=== PATIENT | female | born 1945 | race Caucasian/White ===

== ENCOUNTER → 2025-04-19 | Outpatient (CLI) | payer MEDICARE, BC, SELFPAY ==
--- OUTSIDE RECORDS SUMMARY | 2025-02-22 14:13 | XMS RPT_ITS ---
Author Name Auto Generated Organization OHIP Support Name Relationship Address Phone RETIRED Next of Kin Unknown Unavailable RITIKA JESUS Next of Kin Unknown [phone] RETIRED Next of Kin Unknown Unavailable RITIKA JESUS Next of Kin Unknown [phone] RETIRED Next of Kin Unknown Unavailable RITIKA JESUS Next of Kin Unknown [phone] RETIRED Next of Kin Unknown Unavailable ANN MARIE, RITIKA Next of Kin Unknown [phone] RETIRED Next of Kin Unknown Unavailable RITIKA JESUS Next of Kin Unknown [phone] RETIRED Next of Kin Unknown Unavailable ANN MARIE, RITIKA Next of Kin Unknown [phone] RETIRED Next of Kin Unknown Unavailable RITIKA JESUS Next of Kin Unknown [phone] THIEME, ORTEGA Next of Kin [address] [place] [address] + THIEME, ORTEGA Next of Kin [address] [place] [address] + THIEME, ORTEGA Next of Kin [address] [place] [address] + RETIRED Next of Kin Unknown Unavailable RITIKA JESUS Next of Kin Unknown [phone] THIEME, ORTEGA Next of Kin [address] [place] [address] + THIEME, ORTEGA Next of Kin [address] [place] [address] + THIEME, ORTEGA Next of Kin [address] [place] [address] + THIEME, ORTEGA Next of Kin [address] [place] [address] + THIEME, ORTEGA Next of Kin [address] [place] [address] + THINELSON, ORTEGA Next of Kin [address] [place] [address] + RETIRED Next of Kin Unknown Unavailable RITIKA JESUS Next of Kin Unknown [phone] RETIRED Next of Kin Unknown Unavailable THIRITIKA DAMON Next of Kin Unknown [phone] RETIRED Next of Kin Unknown Unavailable THIRITIKA DAMON Next of Kin Unknown [phone] THINELSON, ORTEGA Next of Kin [address] [place] [address] + RETIRED Next of Kin Unknown Unavailable RITIKA JESUS Next of Kin Unknown [phone] Care Team Providers Care Practical Nursing Instructor Name Role Phone EVELYNE BRYANT S Referring Unavailable STENTZ, AISLINN Primary Care Unavailable MASOODSOEVELYNE S Referring Unavailable STENTZ, AISLINN Primary Care Unavailable MASOODSOEVELYNE S Referring Unavailable STENTZ, AISLINN Primary Care Unavailable MASOODSO EVELYNE S Referring Unavailable STENTZ, AISLINN Primary Care Unavailable GENIE MARTINEZ Attending Unavailable JOSE MARIE Referring Unavailable OBERHAUSERBRONWYN Primary Care Unavailable BORRUSO, EVELYNE S Referring Unavailable STENTZ, AISLINN Primary Care Unavailable MASOODSO, EVELYNE S Referring Unavailable STENTZ, AISLINN Primary Care Unavailable BORRUSO, EVELYNE S Referring Unavailable STENTZ, AISLINN Primary Care Unavailable GARCIA, RANDAL K Admitting Unavailable GARCIA, RANDAL K Attending Unavailable OBERHAUSERBRONWYN Primary Care Unavailab le GARCIA, RANDAL K Attending Unavailable OBERHAUSER, BRONWYN DALAL Primary Care Unavailab le GARCIA, RANDAL K Referring Unavailable STENTZ, AISLINN Primary Care Unavailable GARCIA, RANDAL K Attending Unavailable GARCIA, RANDAL K Referring Unavailable OBERHAUSER, BRONWYN DALAL Primary Care Unavailab le GARCIA, RANDAL K Attending Unavailable GARCIA, RANDAL K Attending Unavailable OBERHAUSER, BRONWYN DALAL Primary Care Unavailab le GARCIA, RANDAL K Referring Unavailable GARCIA, RANDAL K Attending Unavailable OBERHAUSER, BRONWYN DALAL Primary Care Unavailab le GARCIA, RANDAL K Referring Unavailable ARNIE DUGAN Attending Unavailable OBERHAUSER, BRONWYN Primary Care Unavailable OBERHAUSER, BRONWYN Primary Care Unavailable RITCHIE, ARNIE Attending Unavailable RITCHIE, ARNIE Attending Unavailable OBERHAUSER, BRONWYN Primary Care Unavailable OBERHAUSER, BRONWYN Primary Care Unavailable RAMIREZREBECCA MAX Attending Unavailable OBERHAUSER, BRONWYN Primary Care Unavailable RAMIREZREBECCA Attending Unavailable OBERHAUSER, BRONWYN Primary Care Unavailable RITCHIE, ARNIE Attending Unavailable OBERHAUSER, BRONWYN Primary Care Unavailable RITCHIE, ARNIE Attending Unavailable OBERHAUSER, BRONWYN Primary Care Unavailable RITCHIE, ARNIE Attending Unavailable RITHCIE, ARNIE Referring Unavailable OBERHAUSER, BRONWYN Primary Care Unavailable RITCHIE, ARNIE Admitting Unavailable RITCHIE, ARNIE Attending Unavailable RITCHIE, ARNIE Attending Unavailable OBERHAUSER, BRONWYN Primary Care Unavailable RITCHIE, ARNIE Admitting Unavailable OBERHAUSER, BRONWYN L Primary Care Unavailable OBERHAUSER, BRONWYN L Referring Unavailable OBERHAUSER, BRONWYN L Primary Care Unavailable OBERHAUSER, BRONWYN L Attending Unavailable OBERHAUSER, BRONWYN L Referring Unavailable OBERHAUSER, BRONWYN L Primary Care Unavailable STENTZ, AISLINN Attending Unavailable STENTZ, AISLINN Primary Care Unavailable PROBLEMS DATE TYPE CONDITION / CODE ATTENDING STATUS [facility] 02/01/2025 Admitting Diagnosis Trochanteric bursitis, right hip / M70.61(ICD-10) [facility] 02/01/2025 Admitting Diagnosis Unilateral primary osteoarthritis, right hip / M16.11(ICD-10) [facility] 02/01/2025 Admitting Diagnosis Other intervertebral disc degeneration, lumbar region without mention of lumbar back pain or lower extremity pain / M51.369(ICD-10) [facility] 12/07/2024 Admitting diagnosis Spinal stenosis, lumbar region with neurogenic claudication / M48.062(ICD-10) ARNIE DUGAN Active [facility] 03/13/2023 Active Hypercholesterem ia / E78.00(ICD-10) RANDAL GARCIA Active [facility] 03/13/2023 Active Lamellar macular hole of left eye / H35.342(ICD-10) RANDAL GARCIA Active [facility] 03/13/2023 Active Optic cupping of both eyes / H47.233(ICD-10) RANDAL GARCIA Active [facility] 03/13/2023 Active Pseudophakia of both eyes / Z96.1(ICD-10) RANDAL GARCIA Active [facility] 04/23/2022 Active COPD, 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 10/20/2024 Admitting Diagnosis Encounter for screening for other suspected endocrine disorder / Z13.29(ICD-10) [facility] 10/20/2024 Admitting Diagnosis Hyperglycemia, unspecified / R73.9(ICD-10) [facility] 09/03/2024 Admitting diagnosis Pain in right hip / M25.551(ICD-10) RITCHIE, [facility] 09/03/2024 Admitting diagnosis Other chronic pain / G89.29(ICD-10) RITCHIE [facility] 08/26/2024 Admitting diagnosis Radiculopathy, lumbar region / M54.16(ICD-10) ARNIE DUGAN [facility] 04/20/2024 Admitting Diagnosis Morbid (severe) obesity due to excess calories (Multi) / E66.01(ICD-10) BRONWYN MICHELLE [facility] 04/20/2024 Admitting Diagnosis Chronic kidney disease, stage 3b (Multi) / N18.32(ICD-10) BRONWYN MICHELLE [facility] 02/27/2023 Admitting Diagnosis Mixed incontinence / N39.46(ICD-10) BRONWYN RUSHING [facility] 09/04/2022 Admitting Diagnosis Presence of left artificial knee joint / Z96.652(ICD-10) [facility] 09/04/2022 Admitting Diagnosis Overactive bladder / N32.81(ICD-10) [facility] 09/04/2022 Admitting Diagnosis Mixed hyperlipidemia / E78.2(ICD-10) [facility] 09/04/2022 Admitting Diagnosis Major depressive disorder, single episode, mild (CMS-HCC) / F32.0(ICD-10) [facility] 09/04/2022 Admitting Diagnosis Centrilobular emphysema (Multi) / J43.2(ICD-10) [facility] 07/04/2023 Admitting Diagnosis Stress incontinence (female) (male) / N39.3(ICD-10) GENIE MARTINEZ [facility] 05/25/2024 Admitting diagnosis Injections / UNK(Unknown) REBECCA RAMIREZ Active [facility] 05/19/2024 Active Primary open ang le glaucoma of left eye, mild stage / H40.1121(ICD-10) RANDAL GARCIA [facility] 05/07/2024 Admitting Diagnosis Deficiency of other specified B group vitamins / E53.8(ICD-10) NA [facility] PROCEDURES No Procedure Records Found RESULTS LIPID PANEL, STANDARD Collected: 2024 11:31 AM Status: F Source: [facility] Order Comment: FASTING:YES FASTING: YES TYPE CODE TESTS RESULT OUT OF RANGE REFERENCE UNITS LAB [id number] CHOLESTEROL, TOTAL 205 High <200 mg/dL LAB [id number] HDL CHOLESTEROL 61 Normal > OR = 50 mg/dL LAB [id number] TRIGLYCERIDES 103 Normal <150 mg/dL LAB [id number] LDL-CHOLESTEROL 123 High mg/dL (calc) Result Comment: Reference ra nge: <100 Desirable range <100 mg/dL for primary prevention; <70 mg/dL for patients with CHD or diabetic patients with > or = 2 CHD risk factors. LDL-C is now calculated using the Natalie calculation, which is a validated novel method providing better accuracy than the Friedewald equation in the estimation of LDL-C. Paul SS et al. ROMEO. 2013;310(19): 8438-2412 (http://education.Dextrys/faq/IKA880) LAB [id number] CHOL/HDLC RATIO 3.4 Normal <5.0 (calc) LAB [id number] NON HDL CHOLESTEROL 144 High <130 mg/dL (calc) Result Comment: For patients with diabetes plus 1 major ASCVD risk factor, treating to a non-HDL-C goal of <100 mg/dL (LDL-C of <70 mg/dL) is considered a therapeutic option. Performed By: #### 7600, 168 02, 88304, 1759, 927, 68208, 56381 #### [facility] [address], [address] [place] [address] Abatement Worker: Dheeraj Fitzgerald MD COMPREHENSIVE METABOLIC PANE L W/ANION GAP Collected: 04/13/2025 11:31 AM Status: F Source: [facility] TYPE CODE TESTS RESULT OUT OF RANGE REFERENCE UNITS LAB [id number] GLUCOSE 109 High 65-99 mg/dL Result Comment: Fasting reference interval For someone without known diabetes, a glucose value between 100 and 125 mg/dL is consistent with prediabetes and should be confirmed with a follow-up test. LAB [id number] UREA NITROGEN (BUN) 18 Normal 7-25 mg/dL LAB [id number] CREATININE 1.25 High 0.60-0.95 mg/dL LAB [id number] EGFR 43 Low > OR = 60 mL/min/1 .73m2 LAB [id number] SODIUM 139 Normal 135-146 mmol/L LAB [id number] POTASSIUM 5.0 Normal 3.5-5.3 mmol/L LAB [id number] CHLORIDE 103 Normal 98-110 mmol/L LAB [id number] CARBON DIOXIDE 28 Normal 20-32 mmol/L LAB [id number] ELECTROLYTE BALANCE 8 Normal 7-17 mmol/L (calc) LAB [id number] CALCIUM 9.6 Normal 8.6-10.4 mg/dL LAB [id number] PROTEIN, TOTAL 6.8 Normal 6.1-8.1 g/dL LAB [id number] ALBUMIN 4.4 Normal 3.6-5.1 g/dL LAB [id number] BILIRUBIN, TOTAL 0.8 Normal 0.2-1.2 mg/dL LAB [id number] ALKALINE PHOSPHATASE 55 Normal 37-153 U/L LAB [id number] AST 16 Normal 10-35 U/L LAB [id number] ALT 14 Normal 6-29 U/L Performed By: #### 7600, 168 02, 22505, 1759, 927, 90053, 96126 #### [facility] [address], [address] [place] [address] Abatement Worker: Dheeraj Fitzgerald MD CBC (H/H, RBC, INDICES, WBC, PLT) Collected: 04/13/2025 11:31 AM Status: F Source: [facility] TYPE CODE TESTS RESULT OUT OF RANGE REFERENCE UNITS LAB [id number] WHITE BLOOD CELL COUNT 4.5 Normal 3.8-10.8 Thousand /uL LAB [id number] RED BLOOD CELL COUNT 4.83 Normal 3.80-5.10 Million/ uL LAB [id number] HEMOGLOBIN 14.3 Normal 11.7-15.5 g/dL LAB [id number] HEMATOCRIT 44.5 Normal 35.0-45.0 % LAB [id number] MCV 92.1 Normal 80.0-100.0 fL LAB 00046728 MCH 29.6 Normal 27.0-33.0 pg LAB [id number] MCHC 32.1 Normal 32.0-36.0 g/dL Result Comment: For adults, a slight decrease in the calculated MCHC value (in the range of 30 to 32 g/dL) is most likely not clinically significant; however, it should be interpreted with caution in correlation with other red cell parameters and the patient's clinical condition. LAB [id number] RDW 13.7 Normal 11.0-15.0 % LAB [id number] PLATELET COUNT 176 Normal 140-400 Thousand /uL LAB [id number] MPV 9.7 Normal 7.5-12.5 fL Performed By: #### 7600, 168 02, 57807, 1759, 927, 67675, 41401 #### [facility] [address] [place] [address], [address] [place] [address] Abatement Worker: Dheeraj Fitzgerald MD VITAMIN B12 Collected: 11:31 AM Status: F Source: [facility] TYPE CODE TESTS RESULT OUT OF RANGE REFERENCE UNITS LAB [id number] VITAMIN B12 467 Normal 200-1100 pg/mL Performed By: #### 7600, 168 02, 41116, 1759, 927, 88035, 95513 #### [facility] [address], [address] [place], [place] [address] Abatement Worker: Dheeraj Fitzgerald MD TSH W/REFLEX TO FT4 Collected: 04/13/20 11:31 AM Status: F Source: [facility] TYPE CODE TESTS RESULT OUT OF RANGE REFERENCE UNITS LAB [id number] TSH W/REFLEX TO FT4 2.58 Normal 0.40-4.50 mIU/L Performed By: #### 7600, 168 , 37233, 1759, 927, 23845, 84038 #### [facility] [address], [address] [place] [address] Abatement Worker: Dheeraj Fitzgerald MD VITAMIN D,25-OH,TOTAL,IA Collected: 11:31 AM Status: F Source: [facility] TYPE CODE TESTS RESULT OUT OF RANGE REFERENCE UNITS LAB [id number] VITAMIN D,25-OH,TOT AL,IA 31 Normal 30-100 ng/mL Result Comment: Vitamin D St [facility] 25-OH Vitamin D: Deficiency: <20 ng/mL Insufficiency: 20 - 29 ng/mL Optimal: > or = 30 ng/mL For 25-OH Vitamin D testing on patients on D2-supplementation and patients for whom quantitation of D2 and D3 fractions is required, the QuestAssureD(TM) 25-OH VIT D, (D2,D3), LC/MS/MS is recommended: order code 52023 (patients >2yrs). See Note 1 Note 1 For additional information, please refer to http://education.Wondershare Software.Mosaic/faq/ZUY660 (This link is being provided for informational/ educational purposes only.) Performed By: #### 7600, 168 02, 37360, 1759, 927, 18410, 43271 #### [facility] [address], [address] [place], [place] [id number] Abatement Worker: Dheeraj Fitzgerald MD HEMOGLOBIN A1C WITH EAG Collected: 03/23 11:31 AM Status: F Source: [facility] TYPE CODE TESTS RESULT OUT OF RANGE REFERENCE UNITS LAB [id number] HEMOGLOBIN A1c 5.5 Normal <5.7 % Result Comment: For the purp ose of screening for the presence of diabetes: <5.7% Consistent with the absence of diabetes 5.7-6.4% Consistent with increased risk for diabetes (prediabetes) > or =6.5% Consistent with diabetes This assay result is consistent with a decreased risk of diabetes. Currently, no consensus exists regarding use of hemoglobin A1c for diagnosis of diabetes in children. According to [place] [employer] Association (ADA) guidelines, hemoglobin A1c <7.0% represents optimal control in non- diabetic patients. Different metrics may apply to specific patient populations. Standards of Medical Care in Diabetes(ADA). LAB [id number] eAG (mg/dL) 111 mg/dL LAB [id number] eAG (mmol/L) 6.2 mmol/L Performed By: #### 7600, 168 02, 71362, 1759, 927, 85354, 31899 #### [facility] [address], [address] [place] [address] Abatement Worker: Dheeraj Fitzgerald MD PROGRESS Observed: 12/25/2024 1:17 PM Status: COMPLETED Source: [facility] Interventional Pain Management Office Note Patient Name: Alan Jesus Referring Physician: No ref. provider found Date of : 1945 PCP: Bronwyn Michelle DO Date of Service: 12/25/24 Assessment & Plan Virtual Visit Consent Statement: I discussed risks, benefits and alternatives of telemedicine consultation with the patient (and any accompanying persons) including the risks that the patient's personal health details and medical records will be discussed over interactive video/audio/telecommunication technology, may be recorded, and that there are inherent diagnostic limitations compared to [id number] evaluations. They elected to proceed with the telemedicine visit. Today's visit was performed utilizing audio technology. Greater than 10 minutes was spent with the patient for evaluation, diagnosis and treatment. Patient was having equipment difficulty and the visit had to be converted to audio only. A level 4 MDM was billed today as we are managing multiple chronic medical conditions as well as prescription medication management. Assessment: Lumbar spinal stenosis with neurogenic claudication Lumbar radiculopathy Lumbar spondylosis Lumbosacral spondylosis Lumbar degenerative disc disease Chronic right hip pain Primary right hip osteoarthritis Encounter for long-term, current, high risk medication management Chronic pain syndrome Anticoagulation: ASA Narrative: She presents today with chronic right-sided low back pain that wraps around into her right hip and right anterior thigh. X-ray of her lumbar spine performed on 08/28/2023 shows moderate to severe loss of disc height at L2-L3 and L3-L4 with vacuum phenomenon. There is also facet arthrosis most severe at L4-L5 and L5-S1. MRI performed on 09/18/2024 reviewed today in office and demonstrates L5-S1: Severe bilateral facet arthropathy and ligamentum flavum hypertrophy. No disc herniation. No spinal canal or foraminal stenosis. L4-L5: Disc bulge, with a broad-based left subarticular to far lateral disc protrusion. Moderate facet arthropathy and ligamentum flavum hypertrophy. Mild spinal canal and left lateral recess stenosis. Mild left foraminal stenosis. L3-L4: Broad-based disc protrusion, moderate facet arthropathy, ligamentum flavum hypertrophy. There is mild central spinal canal stenosis. There is L3-L4 [id number] right and mild left foraminal stenosis. L2-L3: Left foraminal disc protrusion and mild facet arthropathy. No spinal canal stenosis. Mild left foraminal stenosis. I believe a significant portion of her pain is coming from her lumbar spinal canal stenosis at L3-L4 and L4-L5. She also has a component of lumbar spondylosis and lumbar degenerative disease contribute to her pain syndrome. She is status post lumbar epidural steroid injection at L3-L4 to treat her lumbar spinal stenosis symptoms. This was performed on 11/02/2024 and she endorses no relief following the injection. She also is endorsing significant chronic right hip pain. She did trial a right greater trochanteric bursa injection x 2 with orthopedic surgery however she did not get any sustained relief. She does have significant pain with internal and external rotation of her right hip. X-ray of her right hip does show mild degenerative changes. She is status post right hip joint steroid injection on 09/03/2024 and endorses 100 send improvement in her right 100% improvement in her right hip/groin pain. Analgesia: Patient has inadequate analgesia with the use of current opioid pain medication. Activities of Daily Living: Patient's activities of daily living and psychological functioning have improved sufficiently with use of the current opioid medication. Adverse Effects: Patient reports no adverse effects with use of the opioid pain medication. Aberrant Drug-Taking Behavior: Patient has demonstrated no aberrant drug taking behaviors with no deviation from prescription. Unfortunately she has tried and failed many of the above conservative options. I do believe she is a candidate to initiate low-dose opioid therapy. Unfortunately, she is not a candidate for tramadol given multiple medication reactions UDS results reviewed today in office. She did endorse relief with the [place] 2.5 mg twice daily however the relief was incomplete and she feels she could use a stronger dose of the medication. We will increase her medication slightly today. Plan: Medications: Increase [place] from 2.5 mg to 5 mg twice daily as needed Follow-up: Return in about 3 months (around 03/27/2025) for Follow-up. Compliance Pain Contract Signed: 12/25/24 OARRS/NARxCheck: 12/25/24 Drug Screen/Pill Count History: UDS 12/07/24: appropriate Narcan offered/ordered: 12/25/24 Opioid Risk Tool (ORT): Gender Male or Female: F (08/26/2024 3:00 PM) Family History of Substance Abuse (Alcohol): 0 (08/26/2024 3:00 PM) Family History of Substance Abuse (Illegal Drugs): 0 (08/26/2024 3:00 PM) Family History of Substance Abuse (Prescription Drugs): 0 (08/26/2024 3:00 PM) Personal History of Substance Abuse (Alcohol): 0 (08/26/2024 3:00 PM) Personal History of Substance Abuse (Illegal Drugs): 0 (08/26/2024 3:00 PM) Personal History of Substance Abuse (Prescription Drugs): 0 (08/26/2024 3:00 PM) History of Preadolescent Sexual Abuse: 0 (08/26/2024 3:00 PM) Psychological Disease: 0 (08/26/2024 3:00 PM) Psychological Disease (Depression): 0 (08/26/2024 3:00 PM) Total : 0 (08/26/2024 3:00 PM) Total Score Risk Category: Low Risk (0-3) (08/26/2024 3:00 PM) Oswestry Disability Index (ARCHIE): Oswestry Low Back Disability Index My BACK PAIN at the moment is: 3 (08/26/2024 3:00 PM) Personal care: 1 (08/26/2024 3:00 PM) Lifitn (08/26/2024 3:00 PM) Walkin (08/26/2024 3:00 PM) Sittin (08/26/2024 3:00 PM) Standin (08/26/2024 3:00 PM) Sleepin (08/26/2024 3:00 PM) Sex Life: 3 (08/26/2024 3:00 PM) Social Life: 4 (08/26/2024 3:00 PM) Travelin (08/26/2024 3:00 PM) Oswestry Score: 22 (08/26/2024 3:00 PM) Oswestry Percentage Score: 44 (08/26/2024 3:00 PM) Current Opioid Misuse Measure (COMM): Current Opioid Misuse Measure (COMM) In the past 30 days, how often have you had trouble with thinking clearly or had memory problems?: 1 (10/07/2024 3:00 PM) In the past 30 days, how often do people complain that you are not completing necessary tasks? (i.e., doing things that need to be done, such as going to class, work or appointments) : 0 (10/07/2024 3:00 PM) In the past 30 days, how often have you had to go to someone other than your prescribing physician to get sufficient pain relief from medications? (i.e., another doctor, the Emergency Room, friends, street sources): 0 (10/07/2024 3:00 PM) In the past 30 days, how often have you taken your medications differently from how they are prescribed?: 0 (10/07/2024 3:00 PM) In the past 30 days, how often have you seriously thought about hurting yourself?: 0 (10/07/2024 3:00 PM) In the past 30 days, how much of your time was spent thinking about opioid medications (having enough, taking them, dosing schedule, etc.)?: 0 (10/07/2024 3:00 PM) In the past 30 days, how often have you been in an argument?: 0 (10/07/2024 3:00 PM) In the past 30 days, how often have you had trouble controlling your anger (e.g., road rage, screaming, etc.)?: 1 (10/07/2024 3:00 PM) In the past 30 days, how often have you needed to take pain medications belonging to someone else?: 0 (10/07/2024 3:00 PM) In the past 30 days, how often have you been worried about how you're handling your medications?: 0 (10/07/2024 3:00 PM) In the past 30 days, how often have others been worried about how you're handling your medications?: 0 (10/07/2024 3:00 PM) In the past 30 days, how often have you had to make an emergency phone call or show up at the clinic without an appointment?: 0 (10/07/2024 3:00 PM) In the past 30 days, how often have you gotten angry with people?: 1 (10/07/2024 3:00 PM) In the past 30 days, how often have you had to take more of your medication than prescribed?: 0 (10/07/2024 3:00 PM) In the past 30 days, how often have you borrowed pain medication from someone else?: 0 (10/07/2024 3:00 PM) In the past 30 days, how often have you used your pain medicine for symptoms other than for pain (e.g., to help you sleep, improve your mood, or relieve stress)?: 0 (10/07/2024 3:00 PM) In the past 30 days, how often have you had to visit the Emergency Room?: 0 (10/07/2024 3:00 PM) Total Score: 3 (10/07/2024 3:00 PM) COMM: negative If chronic opioids were prescribed, the risk of chronic opioid therapy includes, but not limited constipation, nausea, vomiting, hormonal changes, osteoporosis, developing a tolerance, dependence or addiction to the medication and the possibility of overdose and . Prior to initiating chronic opioid therapy, patient failed many non-opioid therapies including PT, injections/pain procedures, NSAIDs, Tylenol, muscle relaxers and nerve medications. The goal of opioid therapy is to reduce their chronic pain and improve their functional capacity and quality of life. The lowest effective dose will be utilized for the shortest duration possible. Weaning of opioids will always be considered whenever possible. The patient can NOT mix opioids with other sedating medications or substances including marijuana, benzodiazepines, muscle relaxers, nerve medication and alcohol. The patient can only take medication as prescribed. The patient can NOT sell, share or give away their medication. The patient must lock their medication in a safe location away from children and other family members. If patient has a history of sleep apnea or COPD, they are at increased risk of respiratory depression, overdose and given their underlying disease process. It is important to continue to using their CPAP and supplemental oxygen as prescribed. Patient should NOT take their pain medication if they have a respiratory illness as this puts them at increased risk of respiratory depression, overdose and . Narcan is the reversal agent for an opioid overdose. This should always be next to your opioid medication in the event of an opioid overdose. Narcan prescription was ordered upon initiation of chronic opioid therapy and will be offered or ordered at every follow-up visit or sooner if patient requests. Please refer to instructions on medication packet for proper use. Please discuss with your pharmacist if you have any further questions. Patient agrees to submit to drugs screens and pill counts as requested to ensure compliance and rule out any diversion, medication overuse, inappropriately taking other prescriptions medications or use of illicit substances. Patient understands if either a drug screen or pill count is inappropriate, they will be discharged from the practice. They have agreed to this by way of our mutually signed pain contract scanned into EMR. If a procedure was ordered, the risks of the procedure include, but not limited to, worsening pain, failure to improve pain, bruising, bleeding, infection, medication side effects or allergic reaction to the medications used, tissue injury, nerve injury, nerve palsy or paralysis, transient or permanent weakness, injection of local anesthetic intravascularly or intrathecally resulting in cardiac arrhythmias, fainting, respiratory arrest, spinal cord injury, heart attack, stroke and . If anesthesia or sedation will be used there is a risk for cardiac and respiratory complications including heart attack, stroke, cardiac arrest and . If steroid is given, this can increase blood sugar (if diabetic) and blood pressure (if history of high blood pressure) for several days following the injection.Patient should check both blood pressure and blood sugar regularly and if abnormal should follow-up with their primary care physician. If patient takes a blood thinner or anti-platelet medication, we will request written permission from the managing physician to hold the blood thinner or anti-platelet medication per the LILY guidelines. If the managing physician does not give approval to hold the medication for the duration requested, the procedure will be cancelled. Holding blood thinner or anti-platelet medication can result in increased risk of stroke, heart attack or even when approval by the managing physician is given. History of Present Illness / Review of Systems Reason for Visit: Follow-up Pain location: low back and right hip Current pain Level: 6 Worst pain Level: 10 Pain description: aching Radiation: No Sensory changes: No Motor changes: Yes Duration of pain: >6 months Increases pain: walking, walking up stairs, and walking down stairs Decreases pain: sitting and laying flat Patient's Goals: decrease pain, decrease pain with activity, improve ability to perform activities of daily living, improve quality of life, improve sleep, stand longer, and walk further Acceptable level of pain: 0 Additional concerns: none Focused Review of Systems: Loss of bladder control: Denies Loss of bowel control: Denies Saddle anesthesia: Denies Recent falls: Denies Constipation: Denies Past Medical History Past Medical History: Diagnosis Date Ortiz's palsy Depression Fractures Heart attack (HCC) History of cardiac cath Past Surgical History Past Surgical History: Procedure Laterality Date APPENDECTOMY ARTHROPLASTY KNEE TOTAL ROBOTIC ASSISTED Left 04/03/2022 Procedure: Left total knee replacement Robotic; Surgeon: Rikki Bello MD; Location: [facility] OR; Service: Ortho-Robotics ARTHROPLASTY KNEE TOTAL ROBOTIC ASSISTED Right 11/21/2022 Procedure: Right total knee replacement Robotic; Surgeon: Rikki Bello MD; Location: [facility] OR; Service: Ortho-Robotics BREAST LUMPECTOMY CARPAL TUNNEL RELEASE FOOT SURGERY GALLBLADDER HYSTERECTOMY INJECTION EPIDURAL STEROIDS LUMBAR N/A 11/03/2024 Procedure: Lumbar interlaminar epidural steroid injection, lumbar 3-4; Surgeon: Arnie Dugan DO; Location: [facility]; Service: Pain Management; Laterality: N/A; INJECTION JOINT/LIGAMENT Right 09/03/2024 Procedure: Right Hip Joint Steroid Injection; Surgeon: Arnie Dugan DO; Location: [facility]; Service: Pain Management; Laterality: Right; KNEE SURGERY OOPHORECTOMY SHOULDER SURGERY TUBAL LIGATION Allergies Allergies: Timolol Medications Current Outpatient Medications Medication Instructions aspirin 81 mg, Daily brimonidine (ALPHAGAN) 0.2 % ophthalmic solution 1 drop, 2 times daily calcium carbonate (OS-ZENAIDA) 600 mg, 2 times daily with meals cholecalciferol, vitamin D3, (Vitamin D3) 5,000 unit Tab tablet Daily fish oil-omega-3 fatty acids 300-1,000 mg capsule 2 g, Daily fluticasone propionate (FLONASE) 50 mcg/actuation nasal spray 2 sprays, Daily latanoprost (XALATAN) 0.005 % ophthalmic solution 1 drop, Every night at bedtime meloxicam (MOBIC) 7.5 mg, Daily PRN oxyBUTYnin (DITROPAN) 5 mg, 2 times daily pantoprazole (PROTONIX) 20 mg, Oral, Daily PARoxetine (PAXIL) 40 mg, Daily pravastatin sodium (PRAVASTATIN ORAL) 20 mg trospium (SANCTURA) 20 mg, 2 times daily Social History Social History Socioeconomic History Marital status: Tobacco Use Smoking status: Former Current packs/day: 0.00 Types: Cigarettes Quit date: 2000 Years since quittin.4 Smokeless tobacco: Never Vaping Use Vaping status: Never Used Substance and Sexual Activity Alcohol use: No Drug use: Never Social Drivers of Health Food Insecurity: No Food Insecurity (07/05/2023) Received from [facility] Hunger Vital Sign Worried About Running Out of Food in the Last Year: Never true Ran Out of Food in the Last Year: Never true Transportation Needs: No Transportation Needs (12/06/2022) OASIS A1250: Transportation Lack of Transportation (Medical): No Lack of Transportation (Non-Medical): No Patient Unable or Declines to Respond: No . Family History family history includes Heart disease in her brother and mother. Physical Exam There were no vitals filed for this visit. (Telemedicine visit) General: No acute distress, atraumatic Respiratory: non-labored respirations Psychiatric: appropriate mood and affect Other Tests Imaging All imaging and tests below were personally reviewed by me unless otherwise indicated. MRI lumbar spine 09/18/24: FINDINGS: There is straightening of the lumbar spine. No subluxation. No compression fractures. Severe disc space narrowing at L3-L4. Minimal adjacent Modic type 1 edema. Mild disc space narrowing at L2-L3. Remaining disc space heights are preserved. Conus medullaris terminates at L1. No abnormal signal in the distal spinal cord and conus. L5-S1: Severe bilateral facet arthropathy and ligamentum flavum hypertrophy. No disc herniation. No spinal canal or foraminal stenosis. L4-L5: Disc bulge, with a broad-based left subarticular to far lateral disc protrusion. Moderate facet arthropathy and ligamentum flavum hypertrophy. Mild spinal canal and left lateral recess stenosis. Mild left foraminal stenosis. L3-L4: Broad-based disc protrusion, moderate facet arthropathy, ligamentum flavum hypertrophy. There is mild central spinal canal stenosis. There is L3-L4 [id number] right and mild left foraminal stenosis. L2-L3: Left foraminal disc protrusion and mild facet arthropathy. No spinal canal stenosis. Mild left foraminal stenosis. T12-L1 and L1-L2: No stenosis. IMPRESSION: 1. There is severe degenerative disc disease at L3-L4 and moderate degenerative disc disease in the remaining lumbar spine. There is moderate multilevel degenerative facet arthropathy in the lumbar spine. 2. There are no levels of significant central spinal canal stenosis. There are multiple levels of neural foraminal stenosis as described. Thank you for your kind referral. Please do not hesitate to contact me with any questions. Arnie Dugan D.O. Interventional Pain Management [facility] [place] This note was generated using [employer] voice recognition software in an effort to expedite communication. Please excuse any resultant grammatical or wording errors. AUTHENTICATED BY ARNIE DUGAN, ON 12/25/2024 13:24:32 PROGRESS Observed: 12/07/2024 3:52 PM Status: COMPLETED Source: [facility] Interventional Pain Management Office Note Patient Name: Alanariana Childersnelson Referring Physician: No ref. provider found Date of : 1945 PCP: Bronwyn Michelle DO Date of Service: 12/07/24 Assessment & Plan Assessment: Lumbar spinal stenosis with neurogenic claudication Lumbar radiculopathy Lumbar spondylosis Lumbosacral spondylosis Lumbar degenerative disc disease Chronic right hip pain Primary right hip osteoarthritis Encounter for long-term, current, high risk medication management Chronic pain syndrome Anticoagulation: ASA Narrative: She presents today with chronic right-sided low back pain that wraps around into her right hip and right anterior thigh and the L1, L2 and L3 dermatomal distributions. X-ray of her lumbar spine performed on 08/28/2023 shows moderate to severe loss of disc height at L2-L3 and L3-L4 with vacuum phenomenon. There is also facet arthrosis most severe at L4-L5 and L5-S1. MRI performed on 09/18/2024 reviewed today in office and demonstrates L5-S1: Severe bilateral facet arthropathy and ligamentum flavum hypertrophy. No disc herniation. No spinal canal or foraminal stenosis. L4-L5: Disc bulge, with a broad-based left subarticular to far lateral disc protrusion. Moderate facet arthropathy and ligamentum flavum hypertrophy. Mild spinal canal and left lateral recess stenosis. Mild left foraminal stenosis. L3-L4: Broad-based disc protrusion, moderate facet arthropathy, ligamentum flavum hypertrophy. There is mild central spinal canal stenosis. There is L3-L4 [id number] right and mild left foraminal stenosis. L2-L3: Left foraminal disc protrusion and mild facet arthropathy. No spinal canal stenosis. Mild left foraminal stenosis. I believe a significant portion of her pain is coming from her lumbar spinal canal stenosis at L3-L4 and L4-L5. She also has a component of lumbar spondylosis and lumbar degenerative disease contribute to her pain syndrome. She is status post lumbar epidural steroid injection at L3-L4 to treat her lumbar spinal stenosis symptoms. This was performed on 11/02/2024 and she endorses no relief following the injection. She also is endorsing significant chronic right hip pain. She did trial a right greater trochanteric bursa injection x 2 with orthopedic surgery however she did not get any sustained relief. She does have significant pain with internal and external rotation of her right hip. X-ray of her right hip does show mild degenerative changes. She is status post right hip joint steroid injection on 09/03/2024 and endorses 100 send improvement in her right 100% improvement in her right hip/groin pain. Unfortunately she has tried and failed many of the above conservative options. I do believe she is a candidate to initiate low-dose opioid therapy. Unfortunately, she is not a candidate for tramadol given multiple medication reactions I will order a UDS today in office. We will see her back in 1 to 2 weeks to review the UDS and if appropriate we can continue with long-term opioid therapy. Plan: Medications: Start [place] 2.5 bid prn x 7 days Follow-up: Return in about 2 weeks (around 12/21/2024) for Follow-up. Compliance Pain Contract Signed: 12/07/24 OARRS/NARxCheck: 12/07/24 Drug Screen/Pill Count History: UDS 12/07/24: ordered Narcan offered/ordered: 12/07/24 Opioid Risk Tool (ORT): Gender Male or Female: F (08/26/2024 3:00 PM) Family History of Substance Abuse (Alcohol): 0 (08/26/2024 3:00 PM) Family History of Substance Abuse (Illegal Drugs): 0 (08/26/2024 3:00 PM) Family History of Substance Abuse (Prescription Drugs): 0 (08/26/2024 3:00 PM) Personal History of Substance Abuse (Alcohol): 0 (08/26/2024 3:00 PM) Personal History of Substance Abuse (Illegal Drugs): 0 (08/26/2024 3:00 PM) Personal History of Substance Abuse (Prescription Drugs): 0 (08/26/2024 3:00 PM) History of Preadolescent Sexual Abuse: 0 (08/26/2024 3:00 PM) Psychological Disease: 0 (08/26/2024 3:00 PM) Psychological Disease (Depression): 0 (08/26/2024 3:00 PM) Total : 0 (08/26/2024 3:00 PM) Total Score Risk Category: Low Risk (0-3) (08/26/2024 3:00 PM) Oswestry Disability Index (ARCHIE): Oswestry Low Back Disability Index My BACK PAIN at the moment is: 3 (08/26/2024 3:00 PM) Personal care: 1 (08/26/2024 3:00 PM) Lifitn (08/26/2024 3:00 PM) Walkin (08/26/2024 3:00 PM) Sittin (08/26/2024 3:00 PM) Standin (08/26/2024 3:00 PM) Sleepin (08/26/2024 3:00 PM) Sex Life: 3 (08/26/2024 3:00 PM) Social Life: 4 (08/26/2024 3:00 PM) Travelin (08/26/2024 3:00 PM) Oswestry Score: 22 (08/26/2024 3:00 PM) Oswestry Percentage Score: 44 (08/26/2024 3:00 PM) Current Opioid Misuse Measure (COMM): Current Opioid Misuse Measure (COMM) In the past 30 days, how often have you had trouble with thinking clearly or had memory problems?: 1 (10/07/2024 3:00 PM) In the past 30 days, how often do people complain that you are not completing necessary tasks? (i.e., doing things that need to be done, such as going to class, work or appointments) : 0 (10/07/2024 3:00 PM) In the past 30 days, how often have you had to go to someone other than your prescribing physician to get sufficient pain relief from medications? (i.e., another doctor, the Emergency Room, friends, street sources): 0 (10/07/2024 3:00 PM) In the past 30 days, how often have you taken your medications differently from how they are prescribed?: 0 (10/07/2024 3:00 PM) In the past 30 days, how often have you seriously thought about hurting yourself?: 0 (10/07/2024 3:00 PM) In the past 30 days, how much of your time was spent thinking about opioid medications (having enough, taking them, dosing schedule, etc.)?: 0 (10/07/2024 3:00 PM) In the past 30 days, how often have you been in an argument?: 0 (10/07/2024 3:00 PM) In the past 30 days, how often have you had trouble controlling your anger (e.g., road rage, screaming, etc.)?: 1 (10/07/2024 3:00 PM) In the past 30 days, how often have you needed to take pain medications belonging to someone else?: 0 (10/07/2024 3:00 PM) In the past 30 days, how often have you been worried about how you're handling your medications?: 0 (10/07/2024 3:00 PM) In the past 30 days, how often have others been worried about how you're handling your medications?: 0 (10/07/2024 3:00 PM) In the past 30 days, how often have you had to make an emergency phone call or show up at the clinic without an appointment?: 0 (10/07/2024 3:00 PM) In the past 30 days, how often have you gotten angry with people?: 1 (10/07/2024 3:00 PM) In the past 30 days, how often have you had to take more of your medication than prescribed?: 0 (10/07/2024 3:00 PM) In the past 30 days, how often have you borrowed pain medication from someone else?: 0 (10/07/2024 3:00 PM) In the past 30 days, how often have you used your pain medicine for symptoms other than for pain (e.g., to help you sleep, improve your mood, or relieve stress)?: 0 (10/07/2024 3:00 PM) In the past 30 days, how often have you had to visit the Emergency Room?: 0 (10/07/2024 3:00 PM) Total Score: 3 (10/07/2024 3:00 PM) If chronic opioids were prescribed, the risk of chronic opioid therapy includes, but not limited constipation, nausea, vomiting, hormonal changes, osteoporosis, developing a tolerance, dependence or addiction to the medication and the possibility of overdose and . Prior to initiating chronic opioid therapy, patient failed many non-opioid therapies including PT, injections/pain procedures, NSAIDs, Tylenol, muscle relaxers and nerve medications. The goal of opioid therapy is to reduce their chronic pain and improve their functional capacity and quality of life. The lowest effective dose will be utilized for the shortest duration possible. Weaning of opioids will always be considered whenever possible. The patient can NOT mix opioids with other sedating medications or substances including marijuana, benzodiazepines, muscle relaxers, nerve medication and alcohol. The patient can only take medication as prescribed. The patient can NOT sell, share or give away their medication. The patient must lock their medication in a safe location away from children and other family members. If patient has a history of sleep apnea or COPD, they are at increased risk of respiratory depression, overdose and given their underlying disease process. It is important to continue to using their CPAP and supplemental oxygen as prescribed. Patient should NOT take their pain medication if they have a respiratory illness as this puts them at increased risk of respiratory depression, overdose and . Narcan is the reversal agent for an opioid overdose. This should always be next to your opioid medication in the event of an opioid overdose. Narcan prescription was ordered upon initiation of chronic opioid therapy and will be offered or ordered at every follow-up visit or sooner if patient requests. Please refer to instructions on medication packet for proper use. Please discuss with your pharmacist if you have any further questions. Patient agrees to submit to drugs screens and pill counts as requested to ensure compliance and rule out any diversion, medication overuse, inappropriately taking other prescriptions medications or use of illicit substances. Patient understands if either a drug screen or pill count is inappropriate, they will be discharged from the practice. They have agreed to this by way of our mutually signed pain contract scanned into EMR. If a procedure was ordered, the risks of the procedure include, but not limited to, worsening pain, failure to improve pain, bruising, bleeding, infection, medication side effects or allergic reaction to the medications used, tissue injury, nerve injury, nerve palsy or paralysis, transient or permanent weakness, injection of local anesthetic intravascularly or intrathecally resulting in cardiac arrhythmias, fainting, respiratory arrest, spinal cord injury, heart attack, stroke and . If anesthesia or sedation will be used there is a risk for cardiac and respiratory complications including heart attack, stroke, cardiac arrest and . If steroid is given, this can increase blood sugar (if diabetic) and blood pressure (if history of high blood pressure) for several days following the injection.Patient should check both blood pressure and blood sugar regularly and if abnormal should follow-up with their primary care physician. If patient takes a blood thinner or anti-platelet medication, we will request written permission from the managing physician to hold the blood thinner or anti-platelet medication per the LILY guidelines. If the managing physician does not give approval to hold the medication for the duration requested, the procedure will be cancelled. Holding blood thinner or anti-platelet medication can result in increased risk of stroke, heart attack or even when approval by the managing physician is given. History of Present Illness / Review of Systems Reason for Visit: Follow-up Pain location: right hip Current pain Level: 8 Worst pain Level: 10 Pain description: aching Radiation: No Sensory changes: No Motor changes: Yes Duration of pain: >6 months Increases pain: walking, walking up stairs, and walking down stairs Decreases pain: sitting and laying flat Patient's Goals: decrease pain, decrease pain with activity, improve ability to perform activities of daily living, improve quality of life, improve sleep, stand longer, and walk further Acceptable level of pain: 0 Additional concerns: none Focused Review of Systems: Loss of bladder control: Denies Loss of bowel control: Denies Saddle anesthesia: Denies Recent falls: Denies Constipation: Denies Past Medical History Past Medical History: Diagnosis Date Ortiz's palsy Depression Fractures Heart attack (HCC) History of cardiac cath Past Surgical History Past Surgical History: Procedure Laterality Date APPENDECTOMY ARTHROPLASTY KNEE TOTAL ROBOTIC ASSISTED Left 04/03/2022 Procedure: Left total knee replacement Robotic; Surgeon: Rikki Bello MD; Location: [facility]; Service: Ortho-Robotics ARTHROPLASTY KNEE TOTAL ROBOTIC ASSISTED Right 11/21/2022 Procedure: Right total knee replacement Robotic; Surgeon: Rikki Bello MD; Location: [facility]; Service: Ortho-Robotics BREAST LUMPECTOMY CARPAL TUNNEL RELEASE FOOT SURGERY GALLBLADDER HYSTERECTOMY INJECTION EPIDURAL STEROIDS LUMBAR N/A 11/03/2024 Procedure: Lumbar interlaminar epidural steroid injection, lumbar 3-4; Surgeon: Arnie Dugan DO; Location: [facility] OR; Service: Pain Management; Laterality: N/A; INJECTION JOINT/LIGAMENT Right 09/03/2024 Procedure: Right Hip Joint Steroid Injection; Surgeon: Arnie Dugan DO; Location: [facility] OR; Service: Pain Management; Laterality: Right; KNEE SURGERY OOPHORECTOMY SHOULDER SURGERY TUBAL LIGATION Allergies Allergies: Timolol Medications Current Outpatient Medications Medication Instructions aspirin 81 mg, Daily brimonidine (ALPHAGAN) 0.2 % ophthalmic solution 1 drop, 2 times daily calcium carbonate (OS-ZENAIDA) 600 mg, 2 times daily with meals cholecalciferol, vitamin D3, (Vitamin D3) 5,000 unit Tab tablet Daily fish oil-omega-3 fatty acids 300-1,000 mg capsule 2 g, Daily fluticasone propionate (FLONASE) 50 mcg/actuation nasal spray 2 sprays, Daily latanoprost (XALATAN) 0.005 % ophthalmic solution 1 drop, Every night at bedtime meloxicam (MOBIC) 7.5 mg, Daily PRN oxyBUTYnin (DITROPAN) 5 mg, 2 times daily pantoprazole (PROTONIX) 20 mg, Oral, Daily PARoxetine (PAXIL) 40 mg, Daily pravastatin sodium (PRAVASTATIN ORAL) 20 mg trospium (SANCTURA) 20 mg, 2 times daily Social History Social History Socioeconomic History Marital status: Tobacco Use Smoking status: Former Current packs/day: 0.00 Types: Cigarettes Quit date: 1999 Years since quittin.3 Smokeless tobacco: Never Vaping Use Vaping status: Never Used Substance and Sexual Activity Alcohol use: No Drug use: Never Social Drivers of Health Food Insecurity: No Food Insecurity (07/05/2023) Received from [facility] Hunger Vital Sign Worried About Running Out of Food in the Last Year: Never true Ran Out of Food in the Last Year: Never true Transportation Needs: No Transportation Needs (12/06/2022) OASIS A1250: Transportation Lack of Transportation (Medical): No Lack of Transportation (Non-Medical): No Patient Unable or Declines to Respond: No . Family History family history includes Heart disease in her brother and mother. Physical Exam PACU Vitals 12/07/24 1545 BP: (!) 152/84 Pulse: 61 SpO2: 91% PainSc: 8 PainLoc: Hip General: No acute distress, atraumatic Cardiovascular: normal rate, no edema Respiratory: non-labored respirations Psychiatric: appropriate mood and affect Lumbar Spine Exam: Lumbar ROM decreased in extension left rotation right rotation Lumbar paraspinal tenderness noted bilaterally Strength: RLE: Hip Flex 5/5 Knee Flex 5/5 Knee Ext 5/5 Ankle Dorsiflex 5/5 Ankle Plantar Flex 5/5 LLE: Hip Flex 5/5 Knee Flex 5/5 Knee Ext 5/5 Ankle Dorsiflex 5/5 Ankle Plantar Flex 5/5 Other Tests Imaging All imaging and tests below were personally reviewed by me unless otherwise indicated. MRI lumbar spine 09/18/24: FINDINGS: There is straightening of the lumbar spine. No subluxation. No compression fractures. Severe disc space narrowing at L3-L4. Minimal adjacent Modic type 1 edema. Mild disc space narrowing at L2-L3. Remaining disc space heights are preserved. Conus medullaris terminates at L1. No abnormal signal in the distal spinal cord and conus. L5-S1: Severe bilateral facet arthropathy and ligamentum flavum hypertrophy. No disc herniation. No spinal canal or foraminal stenosis. L4-L5: Disc bulge, with a broad-based left subarticular to far lateral disc protrusion. Moderate facet arthropathy and ligamentum flavum hypertrophy. Mild spinal canal and left lateral recess stenosis. Mild left foraminal stenosis. L3-L4: Broad-based disc protrusion, moderate facet arthropathy, ligamentum flavum hypertrophy. There is mild central spinal canal stenosis. There is L3-L4 [id number] right and mild left foraminal stenosis. L2-L3: Left foraminal disc protrusion and mild facet arthropathy. No spinal canal stenosis. Mild left foraminal stenosis. T12-L1 and L1-L2: No stenosis. IMPRESSION: 1. There is severe degenerative disc disease at L3-L4 and moderate degenerative disc disease in the remaining lumbar spine. There is moderate multilevel degenerative facet arthropathy in the lumbar spine. 2. There are no levels of significant central spinal canal stenosis. There are multiple levels of neural foraminal stenosis as described. Thank you for your kind referral. Please do not hesitate to contact me with any questions. Arnie Dugan D.O. Interventional Pain Management [facility] [place] This note was generated using [employer] voice recognition software in an effort to expedite communication. Please excuse any resultant grammatical or wording errors. AUTHENTICATED BY ARNIE DUGAN, ON 12/07/2024 15:57:26 PROGRESS Observed: 11/04/2024 4:04 PM Status: COMPLETED [facility] [id number] Author: RANDAL GARCIA MD Service: ? Author Type: Physician Type: Progress Notes Filed: 11/04/2024 16:13 Note Text: ASSESSMENT/PLAN: 1. Primary open angle glaucoma (POAG) of right eye, moderate stage - ICD9: 365.11, 365.72, ICD10: H40.1112 (primary diagnosis) 2. Primary open angle glaucoma (POAG) of left eye, mild stage - ICD9: 365.11, 365.71, ICD10: H40.1121 Family history of Glaucoma: Mother PACHS: Right Eye: 557, Left Eye: 541 Gonio: Grade IV angles Both Eyes TMAX: Right Eye: 29 mmHg, Left Eye: 20 mmHg Visual Field 24-2: Nasal step Both Eyes OCT RNFL: Right Eye: 78, Left Eye: 78 Previous procedures: Selective Laser Trabeculoplasty (Right Eye 04/03/2023, Left Eye 03/13/2023) Status Post Canaloplasty with the [employer] surgical system Right Eye (04/02/2024) Continue medications as directed: Current Ophthalmic Meds latanoprostene bunod (VYZULTA) 0.024 % ophthalmic drops Use 1 drop in both eyes daily at bedtime. Follow up in 6 months 3. Optic cupping of both eyes - ICD9: 377.14, ICD10: H47.233 Monitor 4. Lamellar hole left eye Stable/observe 5. Pseudophakia of both eyes - ICD9: V43.1, ICD10: Z96.1 Lens position well centered 6. COPD, mild (HCC) - ICD9: 496, ICD10: J44.9 7. Hypercholesteremia - ICD9: 272.0, ICD10: E78.00 I have confirmed and edited as necessary the relevant HPI, ophthalmic history, ROS, and the neuro exam findings as obtained by others. I have seen and examined Alan Jesus. I have discussed the case and the management of this patient's care with the Resident/Fellow, if applicable. I also have reviewed and agree with the assessment and plan as stated above and agree with all of its relevant components. OP NOTE Observed: 11/03/2024 10:53 AM Status: COMPLETED Source: [facility] LUMBAR INTERLAMINAR EPIDURAL STEROID INJECTION PROCEDURE: 1) L3-L4 interlaminar epidural steroid injection 2) Fluoroscopic needle guidance REASON FOR PROCEDURE: Lumbar Radiculopathy PHYSICIAN: Arnie Dugan D.O. MEDICATIONS INJECTED: Dexamethasone PF 1 mL (10 mg/mL), 3 mL of sterile, preservative-free normal saline, contrast 1 ml LOCAL ANESTHETIC INJECTED: 3 mL of 1% lidocaine SEDATION MEDICATIONS: None ESTIMATED BLOOD LOSS: None COMPLICATIONS: None TECHNIQUE: Time-out was taken to identify the correct patient, procedure and side prior to starting the procedure. With the patient lying in the prone position, the area was prepped and draped in the usual sterile fashion using Povidone-Iodine 10% and a fenestrated drape. The level above was determined using fluoroscopy. A local anesthetic was given using a 25-gauge 1.5- inch needle by raising a skin wheal and going down to the hub. A 3.5-inch 18-gauge Tuohy needle was introduced under intermittent fluoroscopic guidance at the level of L3-L4. The needle was advanced utilizing the contralateral oblique view to the spinolaminar line. The needle was then advanced through the ligamentum flavum using the loss of resistance technique. Once the tip of the needle was thought to be in the desired position, 0.5 cc contrast was injected to confirm only epidural spread and no vascular runoff via A-P and contralateral oblique views. The injectate was then injected slowly. The procedure was completed without complications and was tolerated well. The patient was monitored after the procedure. The patient (or responsible democrat) was given post-procedure and discharge instructions to follow at home. The patient was discharged in stable condition. Notes: None Follow-up in office AUTHENTICATED BY ARNIE DUGAN, ON 11/03/2024 11:01:25 H AND P Observed: 11/03/2024 10:50 AM Status: COMPLETED Source: [facility] Pre-Procedural History and P hysical Update Patient Name: Alan Jesus Admit Date: [id number] MR #: [id number] : 1945 Physicians: Bronwyn Michelle, DO Interval History: Alan Jesus presents today for lumbar epidural steroid injection. The patient reports no interval changes to their health history since the last office visit or pre-admission encounter. The pain remains consistent to their previously documented history. The pain has been present for more than 6 months. Pain score is typically greater than 5/10. Conservative approaches such as medication use, physical therapy modalities and avoidance have not improved the symptoms in the past. The symptoms inhibit at least in part basic activity of daily living. Past Medical/Surgical History: Past Medical History: Diagnosis Date Ortiz's palsy Depression Fractures Heart attack (HCC) History of cardiac cath , Past Surgical History: Procedure Laterality Date APPENDECTOMY ARTHROPLASTY KNEE TOTAL ROBOTIC ASSISTED Left 04/03/2022 Procedure: Left total knee replacement Robotic; Surgeon: Rikki Bello MD; Location: Main OR; Service: Ortho-Robotics ARTHROPLASTY KNEE TOTAL ROBOTIC ASSISTED Right 11/21/2022 Procedure: Right total knee replacement Robotic; Surgeon: Rikki Blelo MD; Location: Main OR; Service: Ortho-Robotics BREAST LUMPECTOMY CARPAL TUNNEL RELEASE FOOT SURGERY GALLBLADDER HYSTERECTOMY INJECTION JOINT/LIGAMENT Right 09/03/2024 Procedure: Right Hip Joint Steroid Injection; Surgeon: Arnie Dugan DO; Location: Main OR; Service: Pain Management; Laterality: Right; KNEE SURGERY OOPHORECTOMY SHOULDER SURGERY TUBAL LIGATION Medications: Current Outpatient Medications Medication Instructions aspirin 81 mg, Daily brimonidine (ALPHAGAN) 0.2 % ophthalmic solution 1 drop, 2 times daily calcium carbonate (OS-ZENAIDA) 600 mg, 2 times daily with meals cholecalciferol, vitamin D3, (Vitamin D3) 5,000 unit Tab tablet Daily fish oil-omega-3 fatty acids 300-1,000 mg capsule 2 g, Daily fluticasone propionate (FLONASE) 50 mcg/actuation nasal spray 2 sprays, Daily latanoprost (XALATAN) 0.005 % ophthalmic solution 1 drop, Every night at bedtime meloxicam (MOBIC) 7.5 mg, Daily PRN oxyBUTYnin (DITROPAN) 5 mg, 2 times daily pantoprazole (PROTONIX) 20 mg, Oral, Daily PARoxetine (PAXIL) 40 mg, Daily pravastatin sodium (PRAVASTATIN ORAL) 20 mg trospium (SANCTURA) 20 mg, 2 times daily Allergies: Allergies[1] Review of Systems: General: No fatigue or malaise Cardio-Pulmonary: No chest pain, no report of shortness of breath Neuro/Musculoskeletal: low back and leg pain Dermatological: no pruritus, rash, induration or infection in the area to be treated Hematological and Lymphatic: No abnormal bleeding, bruising, or petechiae Psychological: no acute anxiety or depression Physical Exam: General: Alert, cooperative, no distress, appears stated age Neuro-Psych: Alert and Oriented, Attention intact. Cognition appropriate to make own decisions. Head: Normocephalic, Atraumatic Resp: Even and Unlabored. Cardiac: no JVD noted. Skin: No rash, signs of infection or breakdown of skin that would contraindicate interventional care Neuro-Musculoskeletal: No gross changes to the previous exam findings Assessment / Plan: Proceed with the care plan as outlined and scheduled. The risks, benefits and side effects of the procedure were previously discussed with the patient. Informed consent was obtained and the procedure will be performed as detailed in the procedure note. The patient desires to move forward with the procedure today. Discharge Disposition: To home or pre-procedure disposition when discharge criteria is met. Arnie Dugan DO, DO 11/03/24 [1] Allergies Allergen Reactions Timolol Angioedema and Unknown AUTHENTICATED BY ARNIE DUGAN, ON 11/03/2024 10:50:29 XR OR FLUOROSCOPY TIME Observed: 025 10:16 AM Status: F Source: [facility] Order Comment: Injury/Trauma or Illness?:Illness/Other How long have you had these symptoms (acute/chronic)?:Chronic Reason for exam?:Lumbar interlaminar epidural steroid injection, lumbar 3-4 Type of Exam?:Unknown Additional signs and symptoms?:. Fluoro time in minutes:0.35 Fluoro dose in mGy?:8.81 This is an auto finalized re sult. Please refer to patient chart for further information.further information.further information. PROGRESS Observed: 10/07/2024 3:52 PM Status: COMPLETED Source: [facility] Interventional Pain Management Office Note Patient Name: Alan Jesus Referring Physician: No ref. provider found Date of : 1945 PCP: Bronwyn Michelle DO Date of Service: 10/07/24 Assessment & Plan Assessment: Lumbar spinal stenosis with neurogenic claudication Lumbar radiculopathy Lumbar spondylosis Lumbosacral spondylosis Lumbar degenerative disc disease Chronic right hip pain Primary right hip osteoathritis Chronic pain syndrome Anticoagulation: ASA Narrative: She presents today with chronic right-sided low back pain that wraps around into her right hip and right anterior thigh and the L1, L2 and L3 dermatomal distributions. X-ray of her lumbar spine performed on 08/28/2023 shows moderate to severe loss of disc height at L2-L3 and L3-L4 with vacuum phenomenon. There is also facet arthrosis most severe at L4-L5 and L5-S1. MRI performed on 09/18/2024 reviewed today in office and demonstrates L5-S1: Severe bilateral facet arthropathy and ligamentum flavum hypertrophy. No disc herniation. No spinal canal or foraminal stenosis. L4-L5: Disc bulge, with a broad-based left subarticular to far lateral disc protrusion. Moderate facet arthropathy and ligamentum flavum hypertrophy. Mild spinal canal and left lateral recess stenosis. Mild left foraminal stenosis. L3-L4: Broad-based disc protrusion, moderate facet arthropathy, ligamentum flavum hypertrophy. There is mild central spinal canal stenosis. There is L3-L4 [id number] right and mild left foraminal stenosis. L2-L3: Left foraminal disc protrusion and mild facet arthropathy. No spinal canal stenosis. Mild left foraminal stenosis. I believe a significant portion of her pain is coming from her lumbar spinal canal stenosis at L3-L4 and L4-L5. She also has a component of lumbar spondylosis and lumbar degenerative disease contribute to her pain syndrome. We will order an a lumbar epidural steroid injection at L3-L4 to treat her lumbar spinal stenosis with neurogenic claudication symptoms. She also is endorsing significant chronic right hip pain. She did trial a right greater trochanteric bursa injection x 2 with orthopedic surgery however she did not get any sustained relief. She does have significant pain with internal and external rotation of her right hip. X-ray of her right hip does show mild degenerative changes. She is status post right hip joint steroid injection on 09/03/2024 and endorses 100 send improvement in her right 100% improvement in her right hip/groin pain. If she does not respond to the interventional pain procedures and may need to consider medication management the future. Plan: Medications: Tylenol 500 mg TID prn Follow-up: Return in about 3 months (around 01/07/2025). Compliance Pain Contract Signed: 10/07/24 OARRS/NARxCheck: 10/07/24 Drug Screen/Pill Count History: n/a Narcan offered/ordered: 10/07/24 Opioid Risk Tool (ORT): Gender Male or Female: F (08/26/2024 3:00 PM) Family History of Substance Abuse (Alcohol): 0 (08/26/2024 3:00 PM) Family History of Substance Abuse (Illegal Drugs): 0 (08/26/2024 3:00 PM) Family History of Substance Abuse (Prescription Drugs): 0 (08/26/2024 3:00 PM) Personal History of Substance Abuse (Alcohol): 0 (08/26/2024 3:00 PM) Personal History of Substance Abuse (Illegal Drugs): 0 (08/26/2024 3:00 PM) Personal History of Substance Abuse (Prescription Drugs): 0 (08/26/2024 3:00 PM) History of Preadolescent Sexual Abuse: 0 (08/26/2024 3:00 PM) Psychological Disease: 0 (08/26/2024 3:00 PM) Psychological Disease (Depression): 0 (08/26/2024 3:00 PM) Total : 0 (08/26/2024 3:00 PM) Total Score Risk Category: Low Risk (0-3) (08/26/2024 3:00 PM) Oswestry Disability Index (ARCHIE): Oswestry Low Back Disability Index My BACK PAIN at the moment is: 3 (08/26/2024 3:00 PM) Personal care: 1 (08/26/2024 3:00 PM) Lifitn (08/26/2024 3:00 PM) Walkin (08/26/2024 3:00 PM) Sittin (08/26/2024 3:00 PM) Standin (08/26/2024 3:00 PM) Sleepin (08/26/2024 3:00 PM) Sex Life: 3 (08/26/2024 3:00 PM) Social Life: 4 (08/26/2024 3:00 PM) Travelin (08/26/2024 3:00 PM) Oswestry Score: 22 (08/26/2024 3:00 PM) Oswestry Percentage Score: 44 (08/26/2024 3:00 PM) Current Opioid Misuse Measure (COMM): Current Opioid Misuse Measure (COMM) In the past 30 days, how often have you had trouble with thinking clearly or had memory problems?: 1 (10/07/2024 3:00 PM) In the past 30 days, how often do people complain that you are not completing necessary tasks? (i.e., doing things that need to be done, such as going to class, work or appointments) : 0 (10/07/2024 3:00 PM) In the past 30 days, how often have you had to go to someone other than your prescribing physician to get sufficient pain relief from medications? (i.e., another doctor, the Emergency Room, friends, street sources): 0 (10/07/2024 3:00 PM) In the past 30 days, how often have you taken your medications differently from how they are prescribed?: 0 (10/07/2024 3:00 PM) In the past 30 days, how often have you seriously thought about hurting yourself?: 0 (10/07/2024 3:00 PM) In the past 30 days, how much of your time was spent thinking about opioid medications (having enough, taking them, dosing schedule, etc.)?: 0 (10/07/2024 3:00 PM) In the past 30 days, how often have you been in an argument?: 0 (10/07/2024 3:00 PM) In the past 30 days, how often have you had trouble controlling your anger (e.g., road rage, screaming, etc.)?: 1 (10/07/2024 3:00 PM) In the past 30 days, how often have you needed to take pain medications belonging to someone else?: 0 (10/07/2024 3:00 PM) In the past 30 days, how often have you been worried about how you're handling your medications?: 0 (10/07/2024 3:00 PM) In the past 30 days, how often have others been worried about how you're handling your medications?: 0 (10/07/2024 3:00 PM) In the past 30 days, how often have you had to make an emergency phone call or show up at the clinic without an appointment?: 0 (10/07/2024 3:00 PM) In the past 30 days, how often have you gotten angry with people?: 1 (10/07/2024 3:00 PM) In the past 30 days, how often have you had to take more of your medication than prescribed?: 0 (10/07/2024 3:00 PM) In the past 30 days, how often have you borrowed pain medication from someone else?: 0 (10/07/2024 3:00 PM) In the past 30 days, how often have you used your pain medicine for symptoms other than for pain (e.g., to help you sleep, improve your mood, or relieve stress)?: 0 (10/07/2024 3:00 PM) In the past 30 days, how often have you had to visit the Emergency Room?: 0 (10/07/2024 3:00 PM) Total Score: 3 (10/07/2024 3:00 PM) If chronic opioids were prescribed, the risk of chronic opioid therapy includes, but not limited constipation, nausea, vomiting, hormonal changes, osteoporosis, developing a tolerance, dependence or addiction to the medication and the possibility of overdose and . Prior to initiating chronic opioid therapy, patient failed many non-opioid therapies including PT, injections/pain procedures, NSAIDs, Tylenol, muscle relaxers and nerve medications. The goal of opioid therapy is to reduce their chronic pain and improve their functional capacity and quality of life. The lowest effective dose will be utilized for the shortest duration possible. Weaning of opioids will always be considered whenever possible. The patient can NOT mix opioids with other sedating medications or substances including marijuana, benzodiazepines, muscle relaxers, nerve medication and alcohol. The patient can only take medication as prescribed. The patient can NOT sell, share or give away their medication. The patient must lock their medication in a safe location away from children and other family members. If patient has a history of sleep apnea or COPD, they are at increased risk of respiratory depression, overdose and given their underlying disease process. It is important to continue to using their CPAP and supplemental oxygen as prescribed. Patient should NOT take their pain medication if they have a respiratory illness as this puts them at increased risk of respiratory depression, overdose and . Narcan is the reversal agent for an opioid overdose. This should always be next to your opioid medication in the event of an opioid overdose. Narcan prescription was ordered upon initiation of chronic opioid therapy and will be offered or ordered at every follow-up visit or sooner if patient requests. Please refer to instructions on medication packet for proper use. Please discuss with your pharmacist if you have any further questions. Patient agrees to submit to drugs screens and pill counts as requested to ensure compliance and rule out any diversion, medication overuse, inappropriately taking other prescriptions medications or use of illicit substances. Patient understands if either a drug screen or pill count is inappropriate, they will be discharged from the practice. They have agreed to this by way of our mutually signed pain contract scanned into EMR. If a procedure was ordered, the risks of the procedure include, but not limited to, worsening pain, failure to improve pain, bruising, bleeding, infection, medication side effects or allergic reaction to the medications used, tissue injury, nerve injury, nerve palsy or paralysis, transient or permanent weakness, injection of local anesthetic intravascularly or intrathecally resulting in cardiac arrhythmias, fainting, respiratory arrest, spinal cord injury, heart attack, stroke and . If anesthesia or sedation will be used there is a risk for cardiac and respiratory complications including heart attack, stroke, cardiac arrest and . If steroid is given, this can increase blood sugar (if diabetic) and blood pressure (if history of high blood pressure) for several days following the injection.Patient should check both blood pressure and blood sugar regularly and if abnormal should follow-up with their primary care physician. If patient takes a blood thinner or anti-platelet medication, we will request written permission from the managing physician to hold the blood thinner or anti-platelet medication per the LILY guidelines. If the managing physician does not give approval to hold the medication for the duration requested, the procedure will be cancelled. Holding blood thinner or anti-platelet medication can result in increased risk of stroke, heart attack or even when approval by the managing physician is given. History of Present Illness / Review of Systems Reason for Visit: New patient evaluation Pain location: right leg, R hip Current pain Level: 5 Worst pain Level: 10 Pain description: dull, sharp, stabbing, and aching Radiation: none Sensory changes: No Motor changes: No Duration of pain: >6 months Increases pain: forward bending, walking up stairs, walking down stairs, weather changes, and everything Decreases pain: sitting Did the pain result from injury? No Previous pain procedures: joint injections Patient's Goals: decrease pain, decrease pain with activity, improve ability to perform activities of daily living, improve quality of life, improve sleep, stand longer, and walk further Acceptable level of pain: 2 Additional concerns: none Focused Review of Systems: Loss of bladder control: Denies Loss of bowel control: Denies Saddle anesthesia: Denies Recent falls: Denies Constipation: Denies Past Medical History Past Medical History: Diagnosis Date Ortiz's palsy Depression Fractures Heart attack (HCC) History of cardiac cath Past Surgical History Past Surgical History: Procedure Laterality Date APPENDECTOMY ARTHROPLASTY KNEE TOTAL ROBOTIC ASSISTED Left 04/03/2022 Procedure: Left total knee replacement Robotic; Surgeon: Rikki Bello MD; Location: [facility] OR; Service: Ortho-Robotics ARTHROPLASTY KNEE TOTAL ROBOTIC ASSISTED Right 11/21/2022 Procedure: Right total knee replacement Robotic; Surgeon: Rikki Bello MD; Location: [facility] OR; Service: Ortho-Robotics BREAST LUMPECTOMY CARPAL TUNNEL RELEASE FOOT SURGERY GALLBLADDER HYSTERECTOMY INJECTION JOINT/LIGAMENT Right 09/03/2024 Procedure: Right Hip Joint Steroid Injection; Surgeon: Arnie Dugan DO; Location: [facility] OR; Service: Pain Management; Laterality: Right; KNEE SURGERY OOPHORECTOMY SHOULDER SURGERY TUBAL LIGATION Allergies Allergies: Timolol Medications Current Outpatient Medications Medication Instructions aspirin 81 mg, Daily brimonidine (ALPHAGAN) 0.2 % ophthalmic solution 1 drop, 2 times daily calcium carbonate (OS-ZENAIDA) 600 mg, 2 times daily with meals cholecalciferol, vitamin D3, (Vitamin D3) 5,000 unit Tab tablet Daily fish oil-omega-3 fatty acids 300-1,000 mg capsule 2 g, Daily fluticasone propionate (FLONASE) 50 mcg/actuation nasal spray 2 sprays, Daily latanoprost (XALATAN) 0.005 % ophthalmic solution 1 drop, Every night at bedtime meloxicam (MOBIC) 7.5 mg, Daily PRN oxyBUTYnin (DITROPAN) 5 mg, 2 times daily pantoprazole (PROTONIX) 20 mg, Oral, Daily PARoxetine (PAXIL) 40 mg, Daily pravastatin sodium (PRAVASTATIN ORAL) 20 mg trospium (SANCTURA) 20 mg, 2 times daily Social History Social History Socioeconomic History Marital status: Tobacco Use Smoking status: Former Current packs/day: 0.00 Types: Cigarettes Quit date: 1999 Years since quittin.2 Smokeless tobacco: Never Vaping Use Vaping status: Never Used Substance and Sexual Activity Alcohol use: No Drug use: Never Social Drivers of Health Food Insecurity: No Food Insecurity (07/05/2023) Received from [facility] Hunger Vital Sign Worried About Running Out of Food in the Last Year: Never true Ran Out of Food in the Last Year: Never true Transportation Needs: No Transportation Needs (12/06/2022) OASIS A1250: Transportation Lack of Transportation (Medical): No Lack of Transportation (Non-Medical): No Patient Unable or Declines to Respond: No . Family History family history includes Heart disease in her brother and mother. Physical Exam PACU Vitals 10/07/24 1546 BP: (!) 141/81 Pulse: 73 Resp: 16 SpO2: 97% General: No acute distress, atraumatic Cardiovascular: normal rate, no edema Respiratory: non-labored respirations Psychiatric: appropriate mood and affect Lumbar Spine Exam: Lumbar ROM decreased in extension left rotation right rotation Lumbar paraspinal tenderness noted bilaterally Strength: RLE: Hip Flex 5/5 Knee Flex 5/5 Knee Ext 5/5 Ankle Dorsiflex 5/5 Ankle Plantar Flex 5/5 LLE: Hip Flex 5/5 Knee Flex 5/5 Knee Ext 5/5 Ankle Dorsiflex 5/5 Ankle Plantar Flex 5/5 Significant pain with internal and external rotation of the right hip Other Tests Imaging All imaging and tests below were personally reviewed by me unless otherwise indicated. MRI lumbar spine 09/18/24: FINDINGS: There is straightening of the lumbar spine. No subluxation. No compression fractures. Severe disc space narrowing at L3-L4. Minimal adjacent Modic type 1 edema. Mild disc space narrowing at L2-L3. Remaining disc space heights are preserved. Conus medullaris terminates at L1. No abnormal signal in the distal spinal cord and conus. L5-S1: Severe bilateral facet arthropathy and ligamentum flavum hypertrophy. No disc herniation. No spinal canal or foraminal stenosis. L4-L5: Disc bulge, with a broad-based left subarticular to far lateral disc protrusion. Moderate facet arthropathy and ligamentum flavum hypertrophy. Mild spinal canal and left lateral recess stenosis. Mild left foraminal stenosis. L3-L4: Broad-based disc protrusion, moderate facet arthropathy, ligamentum flavum hypertrophy. There is mild central spinal canal stenosis. There is L3-L4 [id number] right and mild left foraminal stenosis. L2-L3: Left foraminal disc protrusion and mild facet arthropathy. No spinal canal stenosis. Mild left foraminal stenosis. T12-L1 and L1-L2: No stenosis. IMPRESSION: 1. There is severe degenerative disc disease at L3-L4 and moderate degenerative disc disease in the remaining lumbar spine. There is moderate multilevel degenerative facet arthropathy in the lumbar spine. 2. There are no levels of significant central spinal canal stenosis. There are multiple levels of neural foraminal stenosis as described. Thank you for your kind referral. Please do not hesitate to contact me with any questions. Arnie Dugan D.O. Interventional Pain Management [facility] [place] This note was generated using Eg[employer] voice recognition software in an effort to expedite communication. Please excuse any resultant grammatical or wording errors. AUTHENTICATED BY ARNIE DUGAN, ON 10/07/2024 16:04:48 MR LUMBAR SPINE WITHOUT CONTRAST Observed: 09/18/2024 2:54 PM Status: F Source: [facility] Order Comment: Injury/Trauma or Illness?:Illness/Other How long have you had these symptoms (acute/chronic)?:Acute Reason for exam?:low back pain while walking/bending, pain radiates into right hip, pt denies any injury, no hx of ca Type of Exam?:Initial Additional signs and symptoms?:. EXAMINATION: MR LUMBAR SPINE WITHOUT CONTRAST HISTORY: ORDERING SYSTEM PROVIDED HISTORY: Lumbar radiculopathy, TECHNOLOGIST PROVIDED HISTORY: Illness/Other Reason for exam: low back pain while walking/bending, pain radiates into right hip, pt denies any injury, no hx of ca Encounter Type: Initial Additional signs and symptoms: . ORDERING SYSTEM PROVIDED DIAGNOSIS CODES: M54.16 Lumbar radiculopathy COMPARISON: None. TECHNIQUE: Multiplanar, multisequence MRI images of the lumbar spine were obtained without the administration of intravenous gadolinium contrast. FINDINGS: There is straightening of the lumbar spine. No subluxation. No compression fractures. Severe disc space narrowing at L3-L4. Minimal adjacent Modic type 1 edema. Mild disc space narrowing at L2-L3. Remaining disc space heights are preserved. Conus medullaris terminates at L1. No abnormal signal in the distal spinal cord and conus. L5-S1: Severe bilateral facet arthropathy and ligamentum flavum hypertrophy. No disc herniation. No spinal canal or foraminal stenosis. L4-L5: Disc bulge, with a broad-based left subarticular to far lateral disc protrusion. Moderate facet arthropathy and ligamentum flavum hypertrophy. Mild spinal canal and left lateral recess stenosis. Mild left foraminal stenosis. L3-L4: Broad-based disc protrusion, moderate facet arthropathy, ligamentum flavum hypertrophy. There is mild central spinal canal stenosis. There is L3-L4 [id number] right and mild left foraminal stenosis. L2-L3: Left foraminal disc protrusion and mild facet arthropathy. No spinal canal stenosis. Mild left foraminal stenosis. T12-L1 and L1-L2: No stenosis. IMPRESSION: 1. There is severe degenerative disc disease at L3-L4 and moderate degenerative disc disease in the remaining lumbar spine. There is moderate multilevel degenerative facet arthropathy in the lumbar spine. 2. There are no levels of significant central spinal canal stenosis. There are multiple levels of neural foraminal stenosis as described. [employer] Workstation ID: [id number] Dictated by: JAIRO COLEMAN on SatSep 20, 2024 3:43:43 PM EST Transcribed by: MEREDITH CASEY on SatSep 20, 2024 3:54:00 PM EST Finalized by: JAIRO COLEMAN on SatSep 21, 2024 1:13:20 AM EST OP NOTE Observed: 09/03/2024 12:13 PM Status: COMPLETED Source: [facility] HIP INJECTION PROCEDURE: 1) Right hip joint injection 2) Fluoroscopic needle guidance REASON FOR PROCEDURE: Chronic hip pain PHYSICIAN: Arnie Dugan D.O. MEDICATIONS INJECTED: 1 mL Dexamethasone (10 mg/mL), 2 mL of 0.25% bupivacaine (3 mL per side), contrast 1 ml per side LOCAL ANESTHETIC INJECTED: 3 mL of 1% lidocaine SEDATION MEDICATIONS: None ESTIMATED BLOOD LOSS: None COMPLICATIONS: None TECHNIQUE: Time-out was taken to identify the correct patient, procedure and side prior to starting the procedure. With the patient lying in a supine position, the patient was prepped and draped in the usual sterile fashion using DuraPrep and a fenestrated drape. The area above the target site was determined under fluoroscopy. Local anesthetic was given by raising a skin wheal and going down to the hub of a 25-gauge 1.5-inch needle. A 22-gauge, 3.5-inch Quincke needle was introduced under intermittent fluoroscopy until the right femoral neck was reached. When the tip of the needle was thought to be in the appropriate position, contrast was then injected to confirm intra-articular spread. Medication was then injected slowly. The procedure was completed without complications and was tolerated well. The patient was monitored after the procedure. The patient (or responsible democrat) was given post-procedure and discharge instructions to follow at home. The patient was discharged in stable condition. Notes: none Follow-up: in office AUTHENTICATED BY ARNIE DUGAN, ON 09/03/2024 12:26:10 H AND P Observed: 09/03/2024 12:12 PM Status: COMPLETED Source: [facility] Pre-Procedural History and P hysical Update Patient Name: Alan Jesus Admit Date: [id number] MR #: [id number] : 1945 Physicians: Bronwyn Michelle DO Interval History: Alan Jesus presents today for right hip joint steroid injection. The patient reports no interval changes to their health history since the last office visit or pre-admission encounter. The pain remains consistent to their previously documented history. The pain has been present for more than 6 months. Pain score is typically greater than 5/10. Conservative approaches such as medication use, physical therapy modalities and avoidance have not improved the symptoms in the past. The symptoms inhibit at least in part basic activity of daily living. Past Medical/Surgical History: Past Medical History: Diagnosis Date Ortiz's palsy Depression Fractures Heart attack (HCC) History of cardiac cath , Past Surgical History: Procedure Laterality Date APPENDECTOMY ARTHROPLASTY KNEE TOTAL ROBOTIC ASSISTED Left 04/03/2022 Procedure: Left total knee replacement Robotic; Surgeon: Rikki Bello MD; Location: Main OR; Service: Ortho-Robotics ARTHROPLASTY KNEE TOTAL ROBOTIC ASSISTED Right 11/21/2022 Procedure: Right total knee replacement Robotic; Surgeon: Rikki Bello MD; Location: Main OR; Service: Ortho-Robotics BREAST LUMPECTOMY CARPAL TUNNEL RELEASE FOOT SURGERY GALLBLADDER HYSTERECTOMY KNEE SURGERY OOPHORECTOMY SHOULDER SURGERY TUBAL LIGATION Medications: Current Outpatient Medications Medication Instructions aspirin 81 mg, Daily brimonidine (ALPHAGAN) 0.2 % ophthalmic solution 1 drop, 2 times daily calcium carbonate (OS-ZENAIDA) 600 mg, 2 times daily with meals cholecalciferol, vitamin D3, (Vitamin D3) 5,000 unit Tab tablet Daily fish oil-omega-3 fatty acids 300-1,000 mg capsule 2 g, Daily fluticasone propionate (FLONASE) 50 mcg/actuation nasal spray 2 sprays, Daily latanoprost (XALATAN) 0.005 % ophthalmic solution 1 drop, Every night at bedtime meloxicam (MOBIC) 7.5 mg, Daily PRN oxyBUTYnin (DITROPAN) 5 mg, 2 times daily pantoprazole (PROTONIX) 20 mg, Oral, Daily PARoxetine (PAXIL) 40 mg, Daily pravastatin sodium (PRAVASTATIN ORAL) 20 mg trospium (SANCTURA) 20 mg, 2 times daily Allergies: Allergies Allergen Reactions Timolol Angioedema and Unknown Review of Systems: General: No fatigue or malaise Cardio-Pulmonary: No chest pain, no report of shortness of breath Neuro/Musculoskeletal: right hip pain Dermatological: no pruritus, rash, induration or infection in the area to be treated Hematological and Lymphatic: No abnormal bleeding, bruising, or petechiae Psychological: no acute anxiety or depression Physical Exam: General: Alert, cooperative, no distress, appears stated age Neuro-Psych: Alert and Oriented, Attention intact. Cognition appropriate to make own decisions. Head: Normocephalic, Atraumatic Resp: Even and Unlabored. Cardiac: no JVD noted. Skin: No rash, signs of infection or breakdown of skin that would contraindicate interventional care Neuro-Musculoskeletal: No gross changes to the previous exam findings Assessment / Plan: Proceed with the care plan as outlined and scheduled. The risks, benefits and side effects of the procedure were previously discussed with the patient. Informed consent was obtained and the procedure will be performed as detailed in the procedure note. The patient desires to move forward with the procedure today. Discharge Disposition: To home or pre-procedure disposition when discharge criteria is met. Arnie Dugan DO, DO 09/03/24 AUTHENTICATED BY ARNIE DUGAN ON 09/03/2024 12:12:58 XR OR FLUOROSCOPY TIME Observed: 025 11:54 AM Status: F Source: [facility] Order Comment: Injury/Trauma or Illness?:Illness/Other How long have you had these symptoms (acute/chronic)?:Chronic Reason for exam?:injection Type of Exam?:Unknown Additional signs and symptoms?:injection Fluoro time in minutes:0.06 Fluoro dose in mGy?:0.47 This is an auto finalized re sult. Please refer to patient chart for further information.further information.further information. VITAMIN B12 Collected: 1:39 PM Status: F Source: [facility] TYPE CODE TESTS RESULT OUT OF RANGE REFERENCE UNITS LAB [id number] VITAMIN B12 >2000 High 200-1100 pg/mL Performed By: #### [id number] #### [facility] [address], [address] [place] [id number] Abatement Worker: Dheeraj Fitzgerald MD PROGRESS Observed: 08/26/2024 3:57 PM Status: COMPLETED Source: [facility] Interventional Pain Management Office Note Patient Name: Alan K Ann Marie Referring Physician: No ref. provider found Date of : 1945 PCP: Bronwyn Michelle DO Date of Service: 08/26/24 Assessment & Plan Assessment: Lumbar radiculopathy Lumbar spondylosis Lumbosacral spondylosis Lumbar degenerative disc disease Chronic right hip pain Primary right hip osteoathritis Chronic pain syndrome Anticoagulation: ASA Narrative: She presents today with chronic right-sided low back pain that wraps around into her right hip and right anterior thigh and the L1, L2 and L3 dermatomal distributions. X-ray of her lumbar spine performed on 08/28/2023 shows moderate to severe loss of disc height at L2-L3 and L3-L4 with vacuum phenomenon. There is also facet arthrosis most severe at L4-L5 and L5-S1. I believe her low back pain is secondary to combination of lumbar radiculopathy from possible nerve root impingement, lumbar degenerative disease and lumbar spondylosis. I will order an MRI of her lumbar spine to further evaluate. If MRI does show nerve root impingement she will be a candidate for lumbar epidural steroid injections She also is endorsing significant chronic right hip pain. She did trial a right greater trochanteric bursa injection x 2 with orthopedic surgery however she did not get any sustained relief. She does have significant pain with internal and external rotation of her right hip. X-ray of her right hip does show mild degenerative changes. We will schedule a right hip steroid injection with fluoroscopy to treat her chronic right hip pain secondary to osteoarthritis. Plan: Medications: Tylenol 500 mg TID prn Follow-up: No follow-ups on file. Compliance Pain Contract Signed: 08/26/24 OARRS/NARxCheck: 08/26/24 Drug Screen/Pill Count History: n/a Narcan offered/ordered: 08/26/24 Opioid Risk Tool (ORT): Gender Male or Female: F (08/26/2024 3:00 PM) Family History of Substance Abuse (Alcohol): 0 (08/26/2024 3:00 PM) Family History of Substance Abuse (Illegal Drugs): 0 (08/26/2024 3:00 PM) Family History of Substance Abuse (Prescription Drugs): 0 (08/26/2024 3:00 PM) Personal History of Substance Abuse (Alcohol): 0 (08/26/2024 3:00 PM) Personal History of Substance Abuse (Illegal Drugs): 0 (08/26/2024 3:00 PM) Personal History of Substance Abuse (Prescription Drugs): 0 (08/26/2024 3:00 PM) History of Preadolescent Sexual Abuse: 0 (08/26/2024 3:00 PM) Psychological Disease: 0 (08/26/2024 3:00 PM) Psychological Disease (Depression): 0 (08/26/2024 3:00 PM) Total : 0 (08/26/2024 3:00 PM) Total Score Risk Category: Low Risk (0-3) (08/26/2024 3:00 PM) Oswestry Disability Index (ARCHIE): Oswestry Low Back Disability Index My BACK PAIN at the moment is: 3 (08/26/2024 3:00 PM) Personal care: 1 (08/26/2024 3:00 PM) Lifitn (08/26/2024 3:00 PM) Walkin (08/26/2024 3:00 PM) Sittin (08/26/2024 3:00 PM) Standin (08/26/2024 3:00 PM) Sleepin (08/26/2024 3:00 PM) Sex Life: 3 (08/26/2024 3:00 PM) Social Life: 4 (08/26/2024 3:00 PM) Travelin (08/26/2024 3:00 PM) Oswestry Score: 22 (08/26/2024 3:00 PM) Oswestry Percentage Score: 44 (08/26/2024 3:00 PM) Current Opioid Misuse Measure (COMM): If chronic opioids were prescribed, the risk of chronic opioid therapy includes, but not limited constipation, nausea, vomiting, hormonal changes, osteoporosis, developing a tolerance, dependence or addiction to the medication and the possibility of overdose and . Prior to initiating chronic opioid therapy, patient failed many non-opioid therapies including PT, injections/pain procedures, NSAIDs, Tylenol, muscle relaxers and nerve medications. The goal of opioid therapy is to reduce their chronic pain and improve their functional capacity and quality of life. The lowest effective dose will be utilized for the shortest duration possible. Weaning of opioids will always be considered whenever possible. The patient can NOT mix opioids with other sedating medications or substances including marijuana, benzodiazepines, muscle relaxers, nerve medication and alcohol. The patient can only take medication as prescribed. The patient can NOT sell, share or give away their medication. The patient must lock their medication in a safe location away from children and other family members. If patient has a history of sleep apnea or COPD, they are at increased risk of respiratory depression, overdose and given their underlying disease process. It is important to continue to using their CPAP and supplemental oxygen as prescribed. Patient should NOT take their pain medication if they have a respiratory illness as this puts them at increased risk of respiratory depression, overdose and . Narcan is the reversal agent for an opioid overdose. This should always be next to your opioid medication in the event of an opioid overdose. Narcan prescription was ordered upon initiation of chronic opioid therapy and will be offered or ordered at every follow-up visit or sooner if patient requests. Please refer to instructions on medication packet for proper use. Please discuss with your pharmacist if you have any further questions. Patient agrees to submit to drugs screens and pill counts as requested to ensure compliance and rule out any diversion, medication overuse, inappropriately taking other prescriptions medications or use of illicit substances. Patient understands if either a drug screen or pill count is inappropriate, they will be discharged from the practice. They have agreed to this by way of our mutually signed pain contract scanned into EMR. If a procedure was ordered, the risks of the procedure include, but not limited to, worsening pain, failure to improve pain, bruising, bleeding, infection, medication side effects or allergic reaction to the medications used, tissue injury, nerve injury, nerve palsy or paralysis, transient or permanent weakness, injection of local anesthetic intravascularly or intrathecally resulting in cardiac arrhythmias, fainting, respiratory arrest, spinal cord injury, heart attack, stroke and . If anesthesia or sedation will be used there is a risk for cardiac and respiratory complications including heart attack, stroke, cardiac arrest and . If steroid is given, this can increase blood sugar (if diabetic) and blood pressure (if history of high blood pressure) for several days following the injection.Patient should check both blood pressure and blood sugar regularly and if abnormal should follow-up with their primary care physician. If patient takes a blood thinner or anti-platelet medication, we will request written permission from the managing physician to hold the blood thinner or anti-platelet medication per the LILY guidelines. If the managing physician does not give approval to hold the medication for the duration requested, the procedure will be cancelled. Holding blood thinner or anti-platelet medication can result in increased risk of stroke, heart attack or even when approval by the managing physician is given. History of Present Illness / Review of Systems Reason for Visit: New patient evaluation Pain location: right leg, R hip Current pain Level: 5 Worst pain Level: 10 Pain description: dull, sharp, stabbing, and aching Radiation: none Sensory changes: No Motor changes: No Duration of pain: >6 months Increases pain: forward bending, walking up stairs, walking down stairs, weather changes, and everything Decreases pain: sitting Did the pain result from injury? No Previous pain procedures: joint injections Patient's Goals: decrease pain, decrease pain with activity, improve ability to perform activities of daily living, improve quality of life, improve sleep, stand longer, and walk further Acceptable level of pain: 2 Additional concerns: none Focused Review of Systems: Loss of bladder control: Denies Loss of bowel control: Denies Saddle anesthesia: Denies Recent falls: Denies Constipation: Denies Past Medical History Past Medical History: Diagnosis Date Ortiz's palsy Depression Fractures Heart attack (HCC) History of cardiac cath Past Surgical History Past Surgical History: Procedure Laterality Date APPENDECTOMY ARTHROPLASTY KNEE TOTAL ROBOTIC ASSISTED Left 04/03/2022 Procedure: Left total knee replacement Robotic; Surgeon: Rikki Bello MD; Location: Main OR; Service: Ortho-Robotics ARTHROPLASTY KNEE TOTAL ROBOTIC ASSISTED Right 11/21/2022 Procedure: Right total knee replacement Robotic; Surgeon: Rikki Bello MD; Location: Main OR; Service: Ortho-Robotics BREAST LUMPECTOMY CARPAL TUNNEL RELEASE FOOT SURGERY GALLBLADDER HYSTERECTOMY KNEE SURGERY OOPHORECTOMY SHOULDER SURGERY TUBAL LIGATION Allergies Allergies: Timolol Medications Current Outpatient Medications Medication Instructions aspirin 81 mg, Daily brimonidine (ALPHAGAN) 0.2 % ophthalmic solution 1 drop, 2 times daily calcium carbonate (OS-ZENAIDA) 600 mg, 2 times daily with meals cholecalciferol, vitamin D3, (Vitamin D3) 5,000 unit Tab tablet Daily fish oil-omega-3 fatty acids 300-1,000 mg capsule 2 g, Daily fluticasone propionate (FLONASE) 50 mcg/actuation nasal spray 2 sprays, Daily latanoprost (XALATAN) 0.005 % ophthalmic solution 1 drop, Every night at bedtime meloxicam (MOBIC) 7.5 mg, Daily PRN oxyBUTYnin (DITROPAN) 5 mg, 2 times daily pantoprazole (PROTONIX) 20 mg, Oral, Daily PARoxetine (PAXIL) 40 mg, Daily pravastatin sodium (PRAVASTATIN ORAL) 20 mg trospium (SANCTURA) 20 mg, 2 times daily Social History Social History Socioeconomic History Marital status: Tobacco Use Smoking status: Former Current packs/day: 0.00 Types: Cigarettes Quit date: 1999 Years since quittin.1 Smokeless tobacco: Never Vaping Use Vaping status: Never Used Substance and Sexual Activity Alcohol use: No Drug use: Never Social Drivers of Health Food Insecurity: No Food Insecurity (07/05/2023) [facility], [facility] Hunger Vital Sign Worried About Running Out of Food in the Last Year: Never true Ran Out of Food in the Last Year: Never true Transportation Needs: No Transportation Needs (12/06/2022) OASIS A1250: Transportation Lack of Transportation (Medical): No Lack of Transportation (Non-Medical): No Patient Unable or Declines to Respond: No . Family History family history includes Heart disease in her brother and mother. Physical Exam PACU Vitals 08/26/24 1514 Pulse: 64 SpO2: 94% General: No acute distress, atraumatic Cardiovascular: normal rate, no edema Respiratory: non-labored respirations Psychiatric: appropriate mood and affect Lumbar Spine Exam: Lumbar ROM decreased in extension left rotation right rotation Lumbar paraspinal tenderness noted bilaterally Strength: RLE: Hip Flex 5/5 Knee Flex 5/5 Knee Ext 5/5 Ankle Dorsiflex 5/5 Ankle Plantar Flex 5/5 LLE: Hip Flex 5/5 Knee Flex 5/5 Knee Ext 5/5 Ankle Dorsiflex 5/5 Ankle Plantar Flex 5/5 SLR + right Significant pain with internal and external rotation of the right hip Other Tests Imaging All imaging and tests below were personally reviewed by me unless otherwise indicated. Thank you for your kind referral. Please do not hesitate to contact me with any questions. Arnie Dugan D.O. Interventional Pain Management [facility] This note was generated using [employer] voice recognition software in an effort to expedite communication. Please excuse any resultant grammatical or wording errors. AUTHENTICATED BY ARNIE DUGAN, ON 08/26/2024 16:11:12 PROGRESS Observed: 08/03/2024 8:56 PM Status: COMPLETED Source: [facility] [address] [facility] [address] [facility] [id number] Chief Complaint Patient presents with Right Hip - Pain Alan Jesus returns to the office today for follow up on her right hip. A little over two months ago, I injected the right hip bursa. The patient didn't get any relief from the injection and she was too stubborn to come in sooner. She denies any injury to the hip. She continues to have pain in the posterior hip and buttock area. She isn't having pain in the groin or down the front of the thigh. She has continued with otc pain medications but just isn't getting any type of relief. The patient's past medical history, surgical history, social history, family history, medications and allergies were reviewed with the patient today and are available in the chart for further review. Allergies Allergen Reactions Timolol Angioedema and Unknown Current Outpatient Medications: brimonidine (ALPHAGAN) 0.2 % ophthalmic solution, Administer 1 (one) drop to both eyes 2 (two) times a day ., Disp: , Rfl: calcium carbonate (OS-ZENAIDA) 600 mg calcium (1,500 mg) tablet, Take 1 (one) tablet (600 mg total) by mouth 2 (two) times a day with meals ., Disp: , Rfl: cholecalciferol, vitamin D3, (Vitamin D3) 5,000 unit Tab tablet, Take by mouth daily ., Disp: , Rfl: fish oil-omega-3 fatty acids 300-1,000 mg capsule, Take 2 (two) capsules by mouth daily ., Disp: , Rfl: fluticasone propionate (FLONASE) 50 mcg/actuation nasal spray, Instill 2 (two) sprays into each nostril daily ., Disp: , Rfl: latanoprost (XALATAN) 0.005 % ophthalmic solution, 1 (one) drop every night at bedtime ., Disp: , Rfl: meloxicam (MOBIC) 7.5 MG tablet, Take 1 (one) tablet (7.5 mg total) by mouth daily as needed ., Disp: , Rfl: oxybutynin (DITROPAN) 5 MG tablet, Take 1 (one) tablet (5 mg total) by mouth 2 (two) times a day ., Disp: , Rfl: PARoxetine (PAXIL) 40 MG tablet, Take 1 (one) tablet (40 mg total) by mouth daily Take one tablet by mouth daily ., Disp: , Rfl: 2 pravastatin sodium (PRAVASTATIN ORAL), Take 20 mg by mouth ., Disp: , Rfl: trospium (SANCTURA) 20 mg tablet, Take 1 (one) tablet (20 mg total) by mouth 2 (two) times a day ., Disp: , Rfl: pantoprazole (PROTONIX) 20 MG tablet, Take 1 (one) tablet (20 mg total) by mouth daily ., Disp: 30 tablet, Rfl: 0 Past Medical History: Diagnosis Date Ortiz's palsy Depression Fractures Heart attack (HCC) History of cardiac cath Past Surgical History: Procedure Laterality Date APPENDECTOMY ARTHROPLASTY KNEE TOTAL ROBOTIC ASSISTED Left 04/03/2022 Procedure: Left total knee replacement Robotic; Surgeon: Rikki Bello MD; Location: Main OR; Service: Ortho-Robotics ARTHROPLASTY KNEE TOTAL ROBOTIC ASSISTED Right 11/21/2022 Procedure: Right total knee replacement Robotic; Surgeon: Rikki Bello MD; Location: Main OR; Service: Ortho-Robotics BREAST LUMPECTOMY CARPAL TUNNEL RELEASE FOOT SURGERY GALLBLADDER HYSTERECTOMY KNEE SURGERY OOPHORECTOMY SHOULDER SURGERY TUBAL LIGATION Social History Socioeconomic History Marital status: Tobacco Use Smoking status: Former Current packs/day: 0.00 Types: Cigarettes Quit date: 1999 Years since quittin.0 Smokeless tobacco: Never Vaping Use Vaping status: Never Used Substance and Sexual Activity Alcohol use: No Drug use: Never Social Drivers of Health Food Insecurity: No Food Insecurity (07/05/2023) Received from [facility], [facility] Hunger Vital Sign Worried About Running Out of Food in the Last Year: Never true Ran Out of Food in the Last Year: Never true Transportation Needs: No Transportation Needs (12/06/2022) OASIS A1250: Transportation Lack of Transportation (Medical): No Lack of Transportation (Non-Medical): No Patient Unable or Declines to Respond: No ROS: Review of Systems Musculoskeletal: Positive for arthralgias, back pain, gait problem and myalgias. Negative for joint swelling. PE: Physical Exam Musculoskeletal: General: Tenderness present. No swelling. Lumbar back: Decreased range of motion. Right hip: Tenderness present. No bony tenderness or crepitus. Decreased range of motion. Decreased strength. Legs: Comments: Passive external rotation 45 degrees Passiv e internal rotation 25 degrees Imaging: No new imaging at today's visit Assessment/Plan: We reviewed the lumbar imaging performed a little less than a year ago and I believe this is the cause of her pain. I would like for her to be evaluated by pain management to discuss further treatment options. I will place the referral and see this marilynn lady back as needed. AUTHENTICATED BY REBECCA RAMIREZ, ON 08/03/2024 21:09:01 PROGRESS Observed: 06/30/2024 3:28 PM Status: COMPLETED Source: [facility] ID: [id number] Author: RANDAL GARCIA MD Service: ? Author Type: Physician Type: Progress Notes Filed: 06/30/2024 15:45 Note Text: ASSESSMENT/PLAN: 1. Primary open angle glaucoma (POAG) of right eye, moderate stage - ICD9: 365.11, 365.72, ICD10: H40.1112 (primary diagnosis) 2. Primary open angle glaucoma (POAG) of left eye, mild stage - ICD9: 365.11, 365.71, ICD10: H40.1121 3. S/P eye surgery - ICD9: V45.69, ICD10: Z98.890 - S/P Canaloplasty with iTrack Advance left eye done on 05/19/24 - S/P Canaloplasty with the iTrack Advance Right Eye done on 04/02/2024 The nature of glaucoma was discussed, with emphasis on the non-reversible damage to the optic nerve. Treatment options and the importance of regular examinations and testing were covered in detail, as well as the consequences of non-compliance. The patient was given the opportunity to ask questions. Use medications as directed: Current Ophthalmic Meds latanoprostene bunod (VYZULTA) 0.024 % ophthalmic drops Use 1 Drop in both eyes daily at bedtime- teal lid Continue: Systane Complete solution instill 1 drop 3 times daily Both Eyes. I have confirmed and edited as necessary the relevant HPI, ophthalmic history, ROS, and the neuro exam findings as obtained by others. I have seen and examined Alan Evelin Jesus. I have discussed the case and the management of this patient's care with the Resident/Fellow, if applicable. I also have reviewed and agree with the assessment and plan as stated above and agree with all of its relevant components. PROGRESS Observed: 05/26/2024 4:08 PM Status: COMPLETED Source: [facility] HNO ID: [id number] Author: RANDAL GARCIA MD Service: ? Author Type: Physician Type: Progress Notes Filed: 05/26/2024 16:17 Note Text: ASSESSMENT/PLAN: 1. Primary open angle glaucoma (POAG) of right eye, moderate stage - ICD9: 365.11, 365.72, ICD10: H40.1112 (primary diagnosis) 2. Primary open angle glaucoma (POAG) of left eye, mild stage - ICD9: 365.11, 365.71, ICD10: H40.1121 3. S/P eye surgery - ICD9: V45.69, ICD10: Z98.890 - S/P Canaloplasty with iTrack Advance left eye done on 05/19/24 - S/P Canaloplasty with the iTrack Advance Right Eye done on 04/02/2024 The nature of glaucoma was discussed, with emphasis on the non-reversible damage to the optic nerve. Treatment options and the importance of regular examinations and testing were covered in detail, as well as the consequences of non-compliance. The patient was given the opportunity to ask questions. Use medications as directed: Current Ophthalmic Meds keTORolac (ACULAR) 0.5 % ophthalmic solution Use 1 Drop in the left eye three times daily- fleming lid - for 2 more weeks latanoprostene bunod (VYZULTA) 0.024 % ophthalmic drops Use 1 Drop in both eyes daily at bedtime- teal lid Continue: Systane Complete solution instill 1 drop 3 times daily Both Eyes. Follow up in 1 month I have confirmed and edited as necessary the relevant HPI, ophthalmic history, ROS, and the neuro exam findings as obtained by others. I have seen and examined Alan Jesus. I have discussed the case and the management of this patient's care with the Resident/Fellow, if applicable. I also have reviewed and agree with the assessment and plan as stated above and agree with all of its relevant components. PROGRESS Observed: 05/25/2024 5:03 PM Status: COMPLETED Source: [facility] 05/25/24 Alan Jesus 1945 Chief Complaint Patient presents with - Injections Right hip HISTORY of Present Illness: Alan Jesus is a 79 y.o. year old female that presents today with Injections (Right hip) . Alan Jesus has had injections in the past. Last injection to right/left hip bursa was 09/17/23 and they tolerated well. They have been treated w/ oral medications & injections. Patient denies new injury to the hips. The following portions of the patient's history were reviewed and updated as appropriate: allergies, current medications, past surgical history and problem list PAST MEDICAL HISTORY The patient's Medications, Allergies, Past Surgical History, Medical History, Family History and Social History were reviewed and can be found in their online medical record, and I have reviewed this information with Alan Jesus at the time of their visit. They are significant for Past Medical History: Diagnosis Date - Ortiz's palsy - Depression - Fractures - Heart attack (HCC) - History of cardiac cath IMAGING Notes: none new today. Reviewed from last visit. IMPRESSION And PLAN: Cortisone injection today. Will follow up in 3 months if effective. Call if no improvement in 10 days. No diagnosis found. LG Jt Injection/Arthrocentesis: R greater trochanteric bursa Performed by: Rebecca Ramirez CNP Authorized by: Rebecca Ramirez CNP CPT 07455 - Large Joint Arthrocentesis: Consent given by: Patient Time out: Immediately prior to the procedure a time out was called Physician or proceduralist has discussed critical or nonroutine steps, procedure duration and anticipated blood loss: Yes Supporting Documentation: Indications: Diagnostic evaluation and pain Procedure Details: Location: Hip Site: R greater trochanteric bursa Prep: patient was prepped and draped in usual sterile fashion Needle size: 22 G Medications: 40 mg triamcinolone acetonide 40 mg/mL Anesthetic used: Lidocaine 1% Anesthetic amount (mL): 2 Patient tolerance: Patient tolerated the procedure well with no immediate complications Rebecca Ramirez CNP AUTHENTICATED BY REBECCA RAMIREZ, ON 05/25/2024 17:05:22 PROGRESS Observed: 05/20/2024 8:52 AM Status: COMPLETED Source: [facility] ID: [id number] Author: RANDAL GARCIA MD Service: ? Author Type: Physician Type: Progress Notes Filed: 05/20/2024 09:36 Note Text: ASSESSMENT/PLAN: 1. Primary open angle glaucoma (POAG) of right eye, moderate stage - ICD9: 365.11, 365.72, ICD10: H40.1112 (primary diagnosis) 2. Primary open angle glaucoma (POAG) of left eye, mild stage - ICD9: 365.11, 365.71, ICD10: H40.1121 3. S/P eye surgery - ICD9: V45.69, ICD10: Z98.890 - S/P Canaloplasty with iTrack Advance left eye done on 05/19/24 - S/P Canaloplasty with the iTrack Advance Right Eye done on 04/02/2024 The nature of glaucoma was discussed, with emphasis on the non-reversible damage to the optic nerve. Treatment options and the importance of regular examinations and testing were covered in detail, as well as the consequences of non-compliance. The patient was given the opportunity to ask questions. Current Ophthalmic Meds fluorometholone (FML LIQUID FILM) 0.1 % ophthalmic suspension Use 1 Drop in the left eye four times daily. keTORolac (ACULAR) 0.5 % ophthalmic solution Use 1 Drop in the left eye four times daily. latanoprostene bunod (VYZULTA) 0.024 % ophthalmic drops Use 1 Drop in both eyes daily at bedtime. pilocarpine (ISOPTO CARPINE) 1 % ophthalmic solution Use 1 Drop in the left eye two times a day. Continue: Systane Complete solution instill 1 drop 3 times daily Both Eyes. I have confirmed and edited as necessary the relevant HPI, ophthalmic history, ROS, and the neuro exam findings as obtained by others. I have seen and examined Alan Jesus. I have discussed the case and the management of this patient's care with the Resident/Fellow, if applicable. I also have reviewed and agree with the assessment and plan as stated above and agree with all of its relevant components. ANES POSTPROC EVAL Observed: 05/19/2024 10:04 AM Status: COMPLETED Source: [facility] HNO ID: [id number] Author: BOLIVAR BLACKMON MD Service: Anesthesiology Author Type: Physician Type: Anesthesia Postprocedure Evaluation Filed: 05/19/2024 10:05 Note Text: POST ANESTHESIA EVALUATION NOTE : 1945 Procedure Summary Date: 05/19/24 Room / Location: OR OR Anesthesia Start: 918 Anesthesia Stop: Procedure: TRANSLUMINAL DILATION OF AQUEOUS OUTFLOW CANAL W/O RETENTION OF DEVICE OR STENT (Left: Eye) Diagnosis: Primary open angle glaucoma of left eye, mild stage (Primary open angle glaucoma of left eye, mild stage [H40.1121]) Surgeons: Randal Garcia MD Responsible Provider: Bolivar Blackmon MD Anesthesia Type: MAC ASA Status: 3 Anesthesia Type: MAC Last Vitals Vitals Value Taken Time BP 184/75 05/19/24 1004 Temp 96.8 05/19/24 1004 Pulse 63 05/19/24 1004 Resp 16 05/19/24 1004 SpO2 97% 05/19/24 1004 Post Anesthesia Patient Status Patient Evaluation: bedside. Anticipated Disposition: phase 2 then home. Neurological Status: aware and responsive. Pulmonary Status: breathing comfortably on room air Airway Control: returned to baseline unsupported. Cardiovascular Status: stable. Pain Management: clinically adequate Postoperative Hydration: acceptable. Intraoperative Events: no significant anesthesia events Post Operative Nausea/Vomiting Status: no significant post operative nausea or vomiting Recommendation: continue current plan of care. Anesthesia Observations No Documentation SIGNATURE: Bolivar Blackmon MD PATIENT NAME: Alan Jesus DATE: May 19, 2024 TIME: 10:04 AM CSN: [id number] NURSING PROG Observed: 05/19/2024 9:59 AM Status: COMPLETED Source: [facility] HNO ID: [id number] Author: DARLENE MONDRAGON RN Service: ? Author Type: Registered Nurse Type: Nursing Progress Note Filed: 05/19/2024 10:14 Note Text: Patient returned to post op area with eye pad and eye shield in place. No drainage noted. Patient alert and oriented x3 and voices no complaints. OPERATIVE NO Observed: 05/19/2024 9:19 AM Status: COMPLETED Source: [facility] HNO ID: [id number] Author: RANDAL GARCIA MD Service: Ophthalmology Author Type: Physician Type: Operative Report Filed: 05/19/2024 10:16 Note Text: [place] [address] [place] [facility] OPERATIVE REPORT LOG ID: [id number] Surgery/Procedure Date: 05/19/2024 Incision/Procedure Start Time: 9:32 AM Incision Close/Procedure End Time: 9:55 AM NAME: Alan Waters [facility] #: [id number] Surgeon(s)/Proceduralist(s) and Hr Systems Analyst(s): Surgeons and Role: * Randal Garcia MD - Primary ANESTHESIA: Monitored Anesthesia Care OPERATIONS: Canaloplasty Left Eye, 180 degrees PREOPERATIVE DIAGNOSIS: Primary Open Angle Glaucoma Left Eye, Mild Stage POSTOPERATIVE DIAGNOSIS: Primary Open Angle Glaucoma Left Eye, Mild Stage OPERATIVE INDICATIONS: Intraocular pressure not at desired target pressure with topical medications. An ability to comply with glaucoma eye drop requirements. Patient reports that the side effects of the medications are negatively impacting the patients quality of life. OPERATIVE PROCEDURE: The patient was brought to the operating room and given combined anesthesia with IV sedation. The patient was given a peribulbar block using 1% Lidocaine with Epinephrine. The operative eye was prepped and draped in the usual sterile manner. Betadine ophthalmic solution was instilled into the conjunctival sac and left in place for 3 minutes. The eyelids were retracted with Charles locking wire speculum. Conjunctival sac was irrigated with the help of balanced salt solution. Miochol was injected into the anterior chamber. A 1mm paracentesis port was created. Discovisc was placed in the anterior chamber. A 1.8mm paracentesis blade was used to create a second paracentesis in order to accommodate the iTrack Advance catheter. Viscoat was used to inflate the nasal angle as well as the anterior chamber. A small amount of viscoat was placed on the cornea. The patients head and the operative microscope were repositioned to provide adequate viewing of the nasal angle. The gonio prism was placed on the cornea and visualization of the nasal angle structures were obtained. The iTrack Advance cannula was inserted into the anterior chamber and was used to perform a nasal goniotomy. Through this incision, the iTrack catheter was advanced into the Schlemm's Canal by advancing the actuator and the catheter navigated 180 degrees through Schlemm's canal. Upon withdrawal of the iTrack catheter, Provisc was injected into Schlemm's Canal allowing for vasodilation and focal disruptions of the trabecular platelets to allow better outflow of aqueous. Upon removal of the iTrack catheter, provisc was injected into Schlemm's Canal allowing for vasodilation. Approximately 9 clicks of viscoelastic per 3 clock hours was placed inside Schlemm's canal. The iTrack catheter was then removed from the eye and the patients head was rotated back to the neutral position. An I AND A (irrigation AND Aspiration) handpiece was then used to remove the Viscoat from theanterior chamber as well as any blood products that may have collected during the canaloplasty. Vigamox was injected into the capsule bag and behind the iris through the side port incision. ? At the end of the procedure, the edges of the incision were hydrated by using balanced salt solution. Anterior chamber was inflated with the help of BSS to moderate tension. The surgical incisions were then inspected and found to be water-tight. The eyelid speculum was removed. Betadine ophthalmic solution was instilled into the conjunctival sac. FML eye drops, Acular eye drops and Maxitrol ointment were instilled into the operative eye. The eye was patched and a shield applied. The patient tolerated the procedure well and left the operating room in good condition. * No implants in log * Estimated Blood Loss: None Specimens: None Drains: None Complications: None Participation: I/primary surgeon/proceduralist performed the entire procedure. Randal Garcia M..D. 05/19/2024 , 10:13 AM ANES PRE-OP Observed: 05/19/2024 9:09 AM Status: COMPLETED Source: [facility] ID: [id number] Author: BOLIVAR BLACKMON MD Service: Anesthesiology Author Type: Physician Type: Anesthesia Preprocedure Evaluation Filed: 05/19/2024 09:09 Note Text: ANESTHESIOLOGY DAY OF SURGERY NOTE : 1945 Procedure Information Date/Time: 05/19/24914 Procedure: TRANSLUMINAL DILATION OF AQUEOUS OUTFLOW CANAL W/O RETENTION OF DEVICE OR STENT (Left: Eye) Location: LD OR OR Surgeons: Randal Garcia MD Estimated body mass index is 36.58 kg/m? as calculated from the following: Height as of this encounter: 157.5 cm (5' 2). Weight as of this encounter: 90.7 kg (200 lb). Most recent hematocrit and potassium results: No results found for this basename: HCT,HEMATOCRIT,K,POTASSIUM Relevant Problems PULMONARY (+) COPD, mild (HCC) I - PHYSICAL EVALUATION AIRWAY Patient intubated: No. Tracheostomy tube not present Mallampati: II. TM distance: >3 FB. Neck ROM: full ROM without neurological symptoms. Mouth opening: adequate. Short neck: yes. Thick neck: yes Olivarez present: no Microretrognathia/Micronagthia/Recessed Chin: No DENTAL Dental findings: teeth intact. Additional exam findings: yes. CARDIOVASCULAR Normal cardiovascular observations. PULMONARY Normal pulmonary observations. II - ANESTHESIA PLAN ASA Score: 3 Anesthetic Plan: MAC The patient is not a current smoker. NPO Status: adequate Beta Giuseppe Monitoring Plan Post Procedure Analgesic Plan Postoperative analgesic plan: parenteral or oral opioids. Informed Consent Anesthetic risks, benefits, alternatives, personnel and consent discussed: yes. Patient / Responsible Libertarian agrees to proceed: yes Patient / Surrogate agrees to blood products: Yes DNR status not reviewed with patient and/or family prior to surgery. Significant changes in the patient condition since the History and Physical, not otherwise documented in primary service progress note: no. Potential Anesthesia issues that may suggest increased risk of complications or contraindication to planned procedure: none. Vitals Value Taken Time BP 147/80 05/19/24812 Pulse 62 05/19/24812 Resp 17 05/19/24812 Temp 36.3 ?C (97.3 ?F) 05/19/24812 SpO2 99 % 05/19/24812 Facility-Administered Medications as of 05/19/2024 Medication Dose Route Frequency - lactated ringers iv infusion 30 mL/hr INTRAVENOUS CONTINUOUS - [COMPLETED] tetracaine (PF) 0.5 % 1 Drop (OPTICAINE) 1 Drop LEFT EYE ONCE - moxifloxacin intraocular injection 5 mg/mL (PF) 0.1 mL LEFT EYE ONCE Outpatient Medications as of 05/19/2024 Medication Sig - latanoprostene bunod (VYZULTA) 0.024 % ophthalmic drops Use 1 Drop in both eyes daily at bedtime. - trospium (SANCTURA) 20 mg tablet Take 1 tablet by mouth every 12 hours. - vitamin D3-folic acid 125 mcg (5,000 unit)-1 mg tab Take by mouth. - TRELEGY ELLIPTA 100-62.5-25 mcg inhalation powder - oxybutynin (DITROPAN) 5 mg tablet Take 5 mg by mouth two times a day. - pravastatin (PRAVACHOL) 40 mg tablet Take 40 mg by mouth once daily. - PARoxetine (PAXIL) 40 mg tablet Take 40 mg by mouth once daily. - meloxicam (MOBIC) 15 mg tablet Take 15 mg by mouth. - aspirin, enteric coated (ASPIRIN, ENTERIC COATED) 81 mg EC tablet Take 81 mg by mouth. - omega-3 fatty acids/fish oil (FISH OIL-OMEGA-3 FATTY ACIDS) 300-1,000 mg cap Take 2 g by mouth. - albuterol HFA (PROVENTIL HFA, VENTOLIN HFA) 90 mcg/actuation inhaler Inhale 2 Puffs as instructed every 4 hours as needed for wheezing/shortness of breath. (Patient not taking: Reported on 05/13/2024) - BREZTRI AEROSPHERE 160-9-4.8 mcg/actuation HFA aerosol inhaler TAKE 2 PUFFS BY MOUTH TWICE A DAY - calcium carbonate (CALCIUM 300 ORAL) Take by mouth. - fluticasone (FLONASE) 50 mcg/actuation nasal spray Use in the nose q 24 HR. I have interviewed and examined the patient. I have reviewed the medical record and/or the pre-anesthesia evaluation, pertinent labs, and test results. This contains updated information obtained within 48 hours of Surgery/Procedure. SIGNATURE: Bolivar Blackmon MD PATIENT NAME: Alan Jesus DATE: May 19, 2024 TIME: 9:09 AM CSN: [id number] NURSING PROG Observed: 05/13/2024 8:37 AM Status: COMPLETED [id number] Author: ANATOLIY SINGH RN Service: Nursing Author Type: Registered Nurse Type: Nursing Progress Note Filed: 05/13/2024 08:40 Note Text: Pre-Procedure Checklist Alan Jesus [phone] (home) 1945 79 year old Height: 5'1 Weight: 200 There is no height or weight on file to calculate BMI. Allergies: Timoptic [Timolol] Angioedema Procedure: TRANSLUMINAL DILATION OF AQUEOUS OUTFLOW CANAL W/O RETENTION OF DEVICE OR STENT - Left Date of Procedure: 05/19/2024 Smoke: No Alcohol: No Street Drugs: No Diabetic: No Insulin: No Problems with Anesthesia (Self or Family?) No Manager Cafe: Na Saw artist's manager in the last 6 months? No Recent EKG/Cardiac Testing: No Chest pain in the last 6 months (<6 months cardiac clearance needed): No History of: Heart Attack/Stroke/Blood Clot?: Na Shortness of Breath: No Asthma: No Inhalers: No Any Outstanding Consults?: No If yes, list: Na Additional Notes: 2ND EYE- LEFT. PT INSTRUCTED TO BE NPO AFTER MIDNIGHT; BRING IN EYE GTTS UNOPENED IF PRESCRIBED. ALL QUESTIONS ANSWERED. HISTORY PHYSICAL Observed: 05/06/2024 2:30 PM Status: COMPLETED Source: [facility] ID: [id number] Author: RANDAL GARCIA MD Service: ? Author Type: Physician Type: H&P Filed: 05/06/2024 14:34 Note Text: HISTORY AND PHYSICAL EXAMINATION SERVICE DATE: 05/06/2024 SERVICE TIME: 2:31 PM PRIMARY CARE PHYSICIAN: Bronwyn Michelle DO REASON FOR VISIT: Alan Jesus is a 79 year old female who is being seen for Primary open angle glaucoma left eye, mild stage The patient has the following: ACTIVE PROBLEM LIST Copd, Mild (Hcc) Primary Open Angle Glaucoma (Poag) of Both Eyes, Mild Stage Pseudophakia of Both Eyes Optic Cupping of Both Eyes Primary Open Angle Glaucoma (Poag) of Left Eye, Mild Stage Lamellar Macular Hole of Left Eye Hypercholesteremia SUBJECTIVE CHIEF COMPLAINT: Primary open angle glaucoma left eye, mild stage HPI: Intraocular pressure not at desired target. 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 COPD (chronic obstructive pulmonary disease) (HCC) Glaucoma Heart attack (HCC) 11/15/1999 Heart disease PAST SURGICAL HISTORY Procedure Laterality Date CATARACT EXTRACTION HX right eye-08/07/2016, left eye 08/21/2016 PAST SURGICAL HISTORY OF Appendix removed, hysterectomy,gall bladder removed,carpal tunnel REMOVAL GALLBLADDER 1998 REMOVAL OF OVARY(S) Bilateral 1980 REPAIR ROTATOR CUFF,ACUTE Left 2010 REVISE MEDIAN N/CARPAL TUNNEL SURG 2008 TOTAL ABDOM HYSTERECTOMY 1980 TOTAL KNEE REPLACEMENT Left 03/2022 also right knee- November 2022 FAMILY HISTORY Problem Relation Age of Onset Glaucoma Mother Diabetes Mother Blindness Mother Hypertension Mother Heart Mother Cancer Father Lung Cancer Father Diabetes Sister Diabetes Brother Brain Cancer Brother other (GI cancer) Brother Macular Degen No Family History Detached Retina No Family History SOCIAL HISTORY: Social History Tobacco Use Smoking status: Former Current packs/day: 0.00 Average packs/day: 3.0 packs/day for 30.0 years (90.0 ttl pk-yrs) Types: Cigarettes Start date: 1969 Quit date: 2000 Years since quittin.8 Smokeless tobacco: Never Tobacco comments: she quit 21 years ago. Up to 3 ppd Vaping Use Vaping status: Never Used Substance Use Topics Alcohol use: Not Currently Drug use: Never MEDICATIONS: Prior to Admission medications as of 05/06/24 1359 Medication Sig Last Dose Taking latanoprostene bunod (VYZULTA) 0.024 % ophthalmic drops Use 1 Drop in both eyes daily at bedtime. Taking Yes trospium (SANCTURA) 20 mg tablet Take 1 tablet by mouth every 12 hours. Taking Yes albuterol HFA (PROVENTIL HFA, VENTOLIN HFA) 90 mcg/actuation inhaler Inhale 2 Puffs as instructed every 4 hours as needed for wheezing/shortness of breath. Taking Yes BREZTRI AEROSPHERE 160-9-4.8 mcg/actuation HFA aerosol inhaler TAKE 2 PUFFS BY MOUTH TWICE A DAY Taking Yes vitamin D3-folic acid 125 mcg (5,000 unit)-1 mg tab Take by mouth. Taking Yes calcium carbonate (CALCIUM 300 ORAL) Take by mouth. Taking Yes fluticasone (FLONASE) 50 mcg/actuation nasal spray Use in the nose q 24 HR. Taking Yes TRELEGY ELLIPTA 100-62.5-25 mcg inhalation powder Taking Yes oxybutynin (DITROPAN) 5 mg tablet Take 5 mg by mouth two times a day. Taking Yes pravastatin (PRAVACHOL) 40 mg tablet Take 40 mg by mouth once daily. Taking Yes PARoxetine (PAXIL) 40 mg tablet Take 40 mg by mouth once daily. Taking Yes meloxicam (MOBIC) 15 mg tablet Take 15 mg by mouth. Taking Yes aspirin, enteric coated (ASPIRIN, ENTERIC COATED) 81 mg EC tablet Take 81 mg by mouth. Taking Yes omega-3 fatty acids/fish oil (FISH OIL-OMEGA-3 FATTY ACIDS) 300-1,000 mg cap Take 2 g by mouth. Taking Yes No medication comments found. CURRENT ALLERGIES: ALLERGIES Allergen Reactions Timoptic [Timolol] Angioedema REVIEW OF SYSTEMS: PAIN ASSESSMENT: General: No weight loss, malaise or fevers. Neuro: See HPI Respiratory: No history of current cough or dyspnea, or pneumonia in the past 6 weeks. No history of respiratory/pulmonary symptoms or problems Cardiovascular: Positive for: None GI: No history of GI symptoms or problems. No history of esophageal varices, recent ascites, or ETOH greater than 2 drinks per day. : No history of UTI in past 6 weeks. No history of renal failure. Not currently on or requiring dialysis. No history of symptoms or problems. EXERCISE MANAGER: Negative for abnormal vaginal bleeding, abnormal vaginal discharge. : N/A Endocrine: No history of diabetes. Has not taken steroids within the past 30 days. No history of endocrinological symptoms or problems. Hematology: No history of bleeding or clotting disorder. Pt is not taking anti-coagulation or platelet medications. No history of hematological symptoms or problems. Oncology: No history of CA metastasis, chemo within 30 days, or radiotherapy within 90 days. Has not lost 10% of body wt in 6 months. No history of oncological symptoms or problems. Psych: No history of psychiatric symptoms or problems. Musculoskeletal: Negative for joint pain or swelling, back pain or muscle pain. Skin: Negative for lesions, rash and itching. PHYSICAL EXAM: VITALS: BP 142/84 Pulse 70 General: Alert and oriented Skin: Normal color, no rash, no lesions. HEENT: EOM, pupils equal, round and reactive. Cardiovascular: Normal S1 AND S2, no rubs, murmurs or gallops. No JVD. Pulse regular. Lungs: Normal breath sounds, no wheezes or crackles. Abdomen: Soft, non-tender, no rigidity. Extremities: No deformity, no edema or tenderness, no joint swelling or clubbing. Neurological: Normal cognition and motor skills. Pulses: Carotid and radial pulses normal +2. Diagnostic tests reviewed for today's visit: No new labs or tests ASSESSMENT Medication and Non-Pharmacologic VTE Prophylaxis/Anticoagulants VTE Prophylaxis: VTE prophylaxis appropriate Impression: There is no known pertinent medical condition which may affect emily-operative course @OBESITYCLASS@ Clinical Risk Factors for Possible Cardiac Complications: None Patient is scheduled for a low-risk procedure. FUNCTIONAL STATUS: Walk indoors, such as around the house (1.75 METs) Do light work around the house, such as dusting or washing dishes (2.70 METs) Take care of self, that is eating, dressing, bathing, using the toilet (2.75 METs) Functional Class (NYHA): N/A [facility]: Not obtained PLAN CONSULTS: Patient does not require consults for optimization at this time. The Following Tests/Procedures Have Been Initiated: None Instructions Given to Patient: Patient given verbal and written preop instructions and voices comprehension and compliance. SIGNATURE: Randal Garcia MD PATIENT NAME: Alan Jesus DATE: May 06, 2024 TIME: 2:31 PM PAGER/CONTACT #: PROGRESS Observed: 05/06/2024 1:59 PM Status: COMPLETED Source: [facility] HNO ID: [id number] Author: RANDAL GARCIA MD Service: ? Author Type: Physician Type: Progress Notes Filed: 05/06/2024 14:17 Note Text: ASSESSMENT/PLAN: 1. Primary open angle glaucoma (POAG) of left eye, mild stage - ICD9: 365.11, 365.71, ICD10: H40.1121 (primary diagnosis) Target Intraocular pressure: 12 mmHg Due to the following reason/s: Intraocular pressure not at desired target pressure with topical medications An inability to comply with Glaucoma eye drop requirements Patient reported that the side effects of the medications are negatively impacting the patient's quality of life Failed medical management Patient is scheduled to undergo Canaloplasty with the Omni surgical system Left Eye at [facility] on May 19, 2024. 2. Primary open angle glaucoma (POAG) of right eye, moderate stage - ICD9: 365.11, 365.72, ICD10: H40.1112 3. S/P eye surgery - ICD9: V45.69, ICD10: Z98.890 Status Post Canaloplasty with the iTrack Advance surgical system Right Eye (04/02/2024) Current Ophthalmic Meds latanoprostene bunod (VYZULTA) 0.024 % ophthalmic drops Use 1 Drop in both eyes daily at bedtime. Continue: Refresh eye drops one drop four times daily in both eyes I have confirmed and edited as necessary the relevant HPI, ophthalmic history, ROS, and the neuro exam findings as obtained by others. I have seen and examined Alan Jesus. I have discussed the case and the management of this patient's care with the Resident/Fellow, if applicable. I also have reviewed and agree with the assessment and plan as stated above and agree with all of its relevant components. ALLERGIES DATE TYPE / CODE NAME / CODE REACTION SEVERITY SOURCE 03/13/2023 DRUG INGREDI/[id number]( SNOMED CT) [facility] 03/13/2023 DRUG INGREDI/[id number]( SNOMED CT) TIMOLOL Angioedema [facility] 03/13/2023 DRUG INGREDI/[id number]( SNOMED CT) TIMOLOL Angioedema [facility] ENCOUNTERS ADMIT/DISCHARGE ACCOUNT NUMBER ADMITTING ENCOUNTER CLASS LOCATION SOURCE 02/22/2025/02/23/20 [id number] Ambulatory Building:[facility] 02/19/2025/02/20/20 25 [id number] Ambulatory Building:[facility] 02/15/2025/02/16/20 25 [id number] Ambulatory Building:[facility] 02/12/2025/02/13/20 [id number] Ambulatory Building:[facility] 02/08/2025/02/09/20 25 [id number] Ambulatory Building:[facility] 02/05/2025/02/06/20 25 [id number] Ambulatory Building:[facility] 02/01/2025/02/02/20 25 [id number] Ambulatory Building:[facility] 12/22/2024 [id number] Ambulatory [facility] 12/07/2024/12/08/19 25 [id number] Ambulatory Building:[facility] 11/04/2024/11/05/19 25 [id number] [facility] 11/03/2024/11/04/19 25 [id number] ARNIE DUGAN Ambulatory Building:[facility] 9Room: ORBed: [facility] 10/20/2024/10/21/19 25 [id number] Ambulatory Building:[facility] [id number] [facility] 10/07/2024/10/08/19 25 [id number] Ambulatory Building:[facility] 09/18/2024/09/18/19 25 [id number] Ambulatory Building:[address] 09/03/2024/09/03/19 25 [id number] ARNIE DUGAN Ambulatory Building:[facility] 9Room: ORBed: [facility] 08/27/2024 [id number] Ambulatory Building:[facility] 08/26/2024/08/26/19 25 [id number] Ambulatory Building:[facility] 07/30/2024/07/30/19 25 [id number] Ambulatory Building:[facility] Ambulatory 07/20/2024/07/20/20 24 [id number] Ambulatory Building:[address] Ambulatory 07/02/2024/07/02/20 24 [id number] Ambulatory Building:[facility] 06/30/2024/06/30/20 24 [id number] Ambulatory [facility] 06/10/2024/06/10/20 24 [id number] Ambulatory Building:[facility] [address] Ambulatory 05/26/2024/05/26/20 24 [id number] Ambulatory [facility] 05/25/2024/05/25/20 24 [id number] Ambulatory Building:[facility] 05/20/2024/05/20/20 [id number] [facility] 05/19/2024/05/19/20 24 [id number] RANDAL GARCIA [facility]: POOLBed: [facility] 05/07/2024/05/07/20 [id number] Ambulatory Building:[facility] ugarbuPC1 [facility] 05/06/2024/05/06/20 [id number] [facility] PAYERS ENCOUNTER GUARANTOR PAYER SUBSCRIBER SOURCE 02/22/2025 ALAN CHILDERSEMEDOB: [address] [address]Jqq: () Primary Insurance:MEDICAREPolicy Number: [id number] Date:2009-02-19 ALAN Waters THIEMEDOB: [id number] [address] [address]Mzf: () [facility] 02/22/2025 Secondary Insurance:ANTHEM SUPPLEMENTALPolicy Number: [id number] Date:2016-06-21 ALAN Waters THIEMEDOB: [id number] [address] [address]Kpe: () [facility] 02/19/2025 ALAN Waters THIEMEDOB: [address] [address]Uok: () Primary Insurance:MEDICAREPolicy Number: [id number] Date:2009-02-19 ALAN Waters THIEMEDOB: [id number] [address] [address]Kft: () [facility] 02/19/2025 Secondary Insurance:ANTHEM SUPPLEMENTALPolicy Number: [id number] Date:2016-06-21 ALAN Waters THIEMEDOB: 6812-22-86ABV1136 [address] [address]Imy: () [facility] 02/15/2025 ALAN Waters THIEMEDOB: [place] [address]Tel: () Primary Insurance:MEDICAREPolicy Number: [id number] Date:2009-02-19 ALAN Waters THIEMEDOB: [id number] [place] [address]Tel: () [facility] 02/15/2025 Secondary Insurance:ANTHEM SUPPLEMENTALPolicy Number: [id number] Date:2016-06-21 ALAN Waters THIEMEDOB: [id number] [address] [address]Rcp: () [facility] 02/12/2025 ALAN Waters THIEMEDOB: [address] [address]Qwv: () Primary Insurance:MEDICAREPolicy Number: [id number] Date:2009-02-19 ALAN Waters THIEMEDOB: [id number] [address] [address]Wcr: () [facility] 02/12/2025 Secondary Insurance:ANTHEM SUPPLEMENTALPolicy Number: [id number] Date:2016-06-21 ALAN Waters THIEMEDOB: [id number] [address] [address]Qgn: () [facility] 02/08/2025 ALAN Waters THIEMEDOB: [address] [address]Fvt: () Primary Insurance:MEDICAREPolicy Number: [id number] Date:2009-02-19 ALAN Waters THIEMEDOB: [id number] [address] [address]Mih: () [facility] 02/08/2025 Secondary Insurance:ANTHEM SUPPLEMENTALPolicy Number: [id number] Date:2016-06-21 ALAN Waters THIEMEDOB: [id number] [address] [address]Pwn: () [facility] 02/05/2025 ALAN Waters THIEMEDOB: [place] [address]Tel: () Primary Insurance:MEDICAREPolicy Number: [id number] Date:2009-02-19 ALAN Waters THIEMEDOB: [id number] [place] [address]Tel: () [facility] 02/05/2025 Secondary Insurance:ANTHEM SUPPLEMENTALPolicy Number: [id number] Date:2016-06-21 ALAN Waters THIEMEDOB: [id number] [address] [address]Teb: () [facility] 02/01/2025 ALAN Waters THIEMEDOB: [address] [address]Imx: () Primary Insurance:MEDICAREPolicy Number: [id number] Date:2009-02-19 ALAN Waters THIEMEDOB: [id number] [address] [address]Stn: (HP) [facility] 02/01/2025 Secondary Insurance:ANTHEM SUPPLEMENTALPolicy Number: [id number] Date:2016-06-21 ALAN Waters THIEMEDOB: [id number] [address] [address]Rjd: (HP) [facility] 12/22/2024 ALAN Waters THIEMEDOB: [address] [place] [address]Ywv: ~(6 10 (HP) Primary Insurance:MEDICAREPolicy Number: [id number] Date:1645-31-99PGB J15 PART A CLAIMSPO [address]FNWCPPRDC, [place] [address]RF: ALAN Waters THIEMEDOB: [id number] [address] [place] [address]Kpg: (HP) [facility] 12/22/2024 Secondary Insurance:ANTHEMPolicy Number: [id number] Date:8522-43-16[address]FNUEV, [place] [address]ER: ALAN Waters THIEMEDOB: 3203-74-78VPF6240 [address] [place] [address]Oeb: (HP) [facility] 12/07/2024 ALAN Waters THIEMEDOB: [address], [place] [address]Git: ~(8 10 (HP) Primary Insurance:MEDICAREPolicy Number: [id number] Date:3971-38-42LNK J15 PART A CLAIMSPO [address]IBRUBWCCH, [place] [address]OE: ALAN Waters THIEMEDOB: 9506-58-19FRT9818 [address], [place] [address]Oed: (HP) [facility] 12/07/2024 Secondary Insurance:ANTHEMPolicy Number: [id number] Date:4301-19-43[address]ML, [place] [address]CC: ALAN Waters THIEMEDOB: 1333-07-40MCU69[address], [place] [address]Xbj: () [facility] 11/04/2024 Primary Insurance:MEDICARE A AND BPolicy Number: [id number] Date:1455-87-32Rxps Name:Arnav CHILDERSEMEDOB: [id number] [address] [place], [place] [address] [facility] 11/04/2024 Secondary Insurance:ANTHEM MEDICARE SUPPLEMENTPolicy Number: [id number] Date:6045-36-92Dfir Name:Nellie CHILDERSEMEDOB: [id number], [place] [address] [facility] 11/03/2024 ALAN Waters THIEMEDOB: [address] [place] [address]Reg: ~(8 10 () Primary Insurance:MEDICAREPolicy Number: [id number] Date:4927-70-67FFL J15 PART A CLAIMSPO [address] [address]NNBANLIEONIR [address]IR: ALAN Waters THIEMEDOB: 9449-79-47PNJ36[address], [place] [address]Bvp: () [facility] 11/03/2024 Secondary Insurance:ANTHEMPolicy Number: [id number] Date:9642-86-54[address]QXZLV, [place] [address]OI: ALAN Waters THIEMEDOB: 1075-32-60ABW5[address] [place] [address]Wnf: (HP) [facility] 10/20/2024 ALAN Waters THIEMEDOB: [place] [phone]: (HP) Primary Insurance:MEDICAREPolicy Number: [id number] Date:2009-02-19 ALAN Waters THIEMEDOB: [id number] [address] [address]Oxe: () [facility] 10/20/2024 Secondary Insurance:ANTHEM SUPPLEMENTALPolicy Number: [id number] Date:2016-06-21 ALAN Waters THIEMEDOB: [id number] [address] [address]Bvw: () [facility] 10/07/2024 ALAN Waters THIEMEDOB: [address] [place] [address]Aad: ~(3 10 (HP) Primary Insurance:MEDICAREPolicy Number: [id number] Date:1656-55-34DOE J15 PART A CLAIMSPO [address]KGMGXUDCY, [place] [address]YZ: ALAN Waters THIEMEDOB: 1345-22-62FUF3844 [address] [place] [address]Zoq: (HP) [facility] 10/07/2024 Secondary Insurance:ANTHEMPolicy Number: [id number] Date:5463-12-80CH [address]QKDMLAZ, [place] [address]PI: ALAN Waters THIEMEDOB: 1764-50-53YOY87[address], [place] [address]Tbb: (HP) [facility] 09/18/2024 ALAN Waters THIEMEDOB: [address], [place] [address]Lau: ~(8 10 (HP) Primary Insurance:MEDICAREPolicy Number: [id number] Date:0193-74-54NPV J15 PART A CLAIMSPO [address]VRNXJSVYX, [place] [address]NL: ALAN Waters THIEMEDOB: 9016-95-33MKX82[address], [place] [address]Oad: (HP) [facility] 09/18/2024 Secondary Insurance:ANTHEMPolicy Number: [id number] Date:3237-43-41[address], [place] [address]KP: ALAN Waters THIEMEDOB: 6382-53-96BUR53[address], [place] [address]Syv: (HP) [facility] 09/03/2024 ALAN Waters THIEMEDOB: [address] [place] [address]Swf: ~(8 10 (HP) Primary Insurance:MEDICAREPolicy Number: [id number] Date:9722-21-48VZP J15 PART A CLAIMSPO [address]ZHTXIYDPBTHOMPSON, [place] [address]QM: ALAN Waters THIEMEDOB: 2066-63-43IRG49[address], [place] [address]Igl: (HP) [facility] 09/03/2024 Secondary Insurance:ANTHEMPolicy Number: [id number] Date:3265-77-79Q[address]OV[place]J, [place] [address]NT: ALAN Waters THIEMEDOB: 7754-51-54ABV[address], [place] [address]Jmc: (HP) [facility] 08/27/2024 ALAN Waters THIEMEDOB: [address], [place] [address]Jwh: ~(8 10 (HP) Primary Insurance:MEDICAREPolicy Number: [id number] Date:3132-33-41BGB J15 PART A CLAIMSPO [address]SDHYZSISI, [place] [address]JS: ALAN Waters THIEMEDOB: 8791-12-66YSK2443 [address], [place] [address]Dia: (HP) [facility] 08/27/2024 Secondary Insurance:ANTHEMPolicy Number: [id number] Date:1381-36-13FA [address] [place] [address]WZ: ALAN Waters THIEMEDOB: 2696-71-64UWW6[address], [place] [address]Mqa: (HP) [facility] 08/26/2024 ALAN Waters THIEMEDOB: [address], [place] [address]Mqv: ~(8 10 (HP) Primary Insurance:MEDICAREPolicy Number: [id number] Date:4782-93-45QFR J15 PART A CLAIMSPO [address] [address]JNBVZNFGM, [place] [address]GH: ALAN Waters THIEMEDOB: 7522-24-88GFX84[address], [place] [address]Fug: (HP) [facility] 08/26/2024 Secondary Insurance:ANTHEMPolicy Number: [id number] Date:8465-35-33XU [address]RW, [place] [address]GC: ALAN Waters THIEMEDOB: 6582-93-03YUU57[address] [place] [address]Zbt: (HP) [facility] 07/30/2024 ALAN Waters THIEMEDOB: [address] [address]Tzp: ~( 10 (HP) Primary Insurance:MEDICAREPolicy Number: [id number] Date:2730-70-58ALI J15 PART [facility] [address] [place] [address]XV: ALAN Waters THIEMEDOB: 4862-32-67VPP8832 [address] [place] [address], [place] [address]Svh: (HP) [facility] 07/30/2024 Secondary Insurance:ANTHEMPolicy Number: [id number] Date:0900-73-27WX [address]WJTRWVI, [place] [address]HO: ALAN Waters THIEMEDOB: 2357-42-34RMZ4162 [address] [place] [address]Imd: (HP) [facility] 07/20/2024 ALAN Waters THIEMEDOB: [facility] [address] [place] [address]Ywm: (HP) Primary Insurance:MEDICAREPolicy Number: [id number] Date:2009-02-19 ALAN Waters THIEMEDOB: 8081-09-02PMF2421 [facility] [address] [place] [address]Chs: () [facility] 07/20/2024 Secondary Insurance:ANTHEM SUPPLEMENTALPolicy Number: [id number] Date:2016-06-21 ALAN Waters THIEMEDOB: 5782-42-11YWR1890 [address] [address]Zmd: () [facility] 07/02/2024 ALAN Waters THIEMEDOB: [place] [address]Tel: () Primary Insurance:MEDICAREPolicy Number: [id number] Date:2009-02-19 ALAN Waters THIEMEDOB: 1372-94-94ISE0200 [place] [address]Tel: () [facility] 07/02/2024 Secondary Insurance:ANTHEM SUPPLEMENTALPolicy Number: [id number] Date:2016-06-21 ALAN Waters THIEMEDOB: 5425-25-56ENQ8208 [address] [address]Kho: () [facility] 06/30/2024 Primary Insurance:MEDICARE A AND BPolicy Number: [id number] Date:0111-91-81Sbyq Name:Arnav ALAN Waters THIEMEDOB: 0807-58-83PQZ8547 [address] [place], [place] [address] [facility] 06/30/2024 Secondary Insurance:ANTHEM MEDICARE SUPPLEMENTPolicy Number: [id number] Date:8220-56-09Palv Name:Nellie Waters THIEMEDOB: 3951-05-20CMF9009 [place] [address] [facility] 06/10/2024 ALAN Waters THIEMEDOB: [address] [address]Blm: () Primary Insurance:MEDICAREPolicy Number: [id number] Date:2009-02-19 ALAN CHILDERSEMEDOB: [id number] [place] [address]Tel: () [facility] 06/10/2024 Secondary Insurance:ANTHEM SUPPLEMENTALPolicy Number: [id number] Date:2016-06-21 ALAN Waters THIEMEDOB: [id number] [place] [address]Tel: () [facility] 05/26/2024 Primary Insurance:MEDICARE A AND BPolicy Number: [id number] Date:1548-94-89Rpry Name:Arnav CHILDERSEMEDOB: 0244-83-80SLZ7[address] [place], [place] [address] [facility] 05/26/2024 Secondary Insurance:ANTHEM MEDICARE SUPPLEMENTPolicy Number: [id number] Date:0846-93-95Ydfc Name:Nellie CHILDERSEMEDOB: [id number] [place] [id number] [facility] 05/25/2024 ALAN Waters THIEMEDOB: TW [address] [place] [address]Cme: ~(2 10 () Primary Insurance:MEDICAREPolicy Number: [id number] Date:5254-00-17KEP J15 PART A CLAIMSPO [address]CPXMYWQDJ, [place] [address]ME: ALAN CHILDERSEMEDOB: 1881-44-00NOK8846 [address] [place] [address]Ndl: () [facility] 05/25/2024 Secondary Insurance:ANTHEMPolicy Number: [id number] Date:6259-91-98[address]XDX[place], [place] [address]YJ: ALAN Waters THIEMEDOB: 8240-05-96XDO0810 [address] [place] [address]Dwn: (HP) [facility] 05/20/2024 Primary Insurance:MEDICARE A AND BPolicy Number: [id number] Date:5300-33-38Ceqx Name:Arnav CHILDERSEMEDOB: 6067-35-70NWL7[address] [place], [place] [address] [facility] 05/20/2024 Secondary Insurance:ANTHEM MEDICARE SUPPLEMENTPolicy Number: [id number] Date:1818-01-24Zjlu Name:Nellie CHILDERSEMEDOB: [id number] [address] [place], [place] [address] [facility] 05/19/2024 Primary Insurance:MEDICARE A AND BPolicy Number: [id number] Date:1993-40-11Onmh Name:Arnav CHILDERSEMEDOB: [id number] [place], [place] [address] [facility] 05/19/2024 Secondary Insurance:ANTHEM MEDICARE SUPPLEMENTPolicy Number: [id number] Date:7404-23-14Kpfk Name:Nellie Waters THIEMEDOB: 9433-10-06ZBX77[address] [place], [place] [address] [facility] 05/07/2024 ALAN Waters THIEMEDOB: [place] [address]Tel: (HP) Primary Insurance:MEDICAREPolicy Number: [id number] Date:2009-02-19 ALAN CHILDERSEMEDOB: 6099-15-55WNC6952 [address] [address]Suv: () [facility] 05/07/2024 Secondary Insurance:ANTHEM SUPPLEMENTALPolicy Number: [id number] Date:2016-06-21 ALAN Waters THIEMEDOB: [id number] [address] [address]Yja: () [facility] 05/06/2024 Primary Insurance:MEDICARE A AND BPolicy Number: [id number] Date:6310-87-44Hjrj Name:Arnav MARTINOB: [id number] [address] 05/06/2024 Secondary Insurance:ANTHEM MEDICARE SUPPLEMENTPolicy Number: [id number] Date:5009-38-75Stai Name:Nellie CHILDERSEMEDOB: [id number] [address]
--- NOTE | 2025-04-19 18:15 | CT_ITS ---
PROCEDURE: EXTREMITY LOWER WITHOUT CONTRA 04/19/2025 REASON FOR EXAM: TEMPLATING FOR RIGHT POOJA TECHNIQUE: Procedure Code: CTELWO Modality: CT Procedure: EXTREMITY LOWER WITHOUT CONTRA Coronal and Sagittal reconstruction series were provided. CONTRAST: None One or more dose reduction techniques were used (e.g., Automated exposure control, adjustment of the mA and/or kV according to patient size, use of iterative reconstruction technique). RADIATION DOSE SUMMARY: DLP: 1048 mGycm COMPARISON: January 18, 2025 x-ray FINDINGS: There is severe osteoarthritis of the right hip with joint space narrowing, subcortical cyst formation, and marginal osteophytes. No acute fracture or dislocation is identified. There are multiple corticated osteochondral fragments in the superolateral joint space with the largest measuring 0.28 cm. Pelvic bones appear intact. Soft tissues are unremarkable. Vascular calcifications are noted. CT/Extremity Lower without Contra IMPRESSION: There is severe osteoarthritis of the right hip with joint space narrowing, sub cortical cyst formation, and marginal osteophytes. Reading Location: [facility]
== END | disposition home or self-care (01) ==
LOC: CT 18:05
PROVIDERS: PCP Physician Assistant; Referring Provider Orthopaedic Surgery; Visit Provider Orthopaedic Surgery
DX: M16.11 Unilateral primary osteoarthritis, right hip (principal)
CPT/HCPCS: 73700

== ENCOUNTER 2025-05-11 11:11 | Inpatient (IN) | payer MEDICARE, BC, SELFPAY ==
[2025-04-28 13:11] LABS: Hematocrit 40.2 % (37-47); Hemoglobin 13.5 g/dL (12.0-15.0); Immature Granulocytes Count 0.020 X10^3/uL (0.0-0.0); Mean Corp Hgb Conc 33.6 g/dL (32-36); Mean Corpuscular Volume 86.8 fL (81-99); Mean Platelet Vol. 10.0 fl (6.2-12.0); NRBC Flagged by Analyzer 0 % (0-5); Platelet Count 142 K/mm3 (150-450); RBC Distribution Width CV 13.1 % (11.6-14.6); RBC Distribution Width SD 41.1 fl (35.1-43.9); Red Blood Count 4.63 M/mm3 (4.2-5.4); White Blood Count 3.9 K/mm3 (4.4-11.0)
[2025-04-28 13:47] LABS: Prothrombin Time (Protime)PT. 14.3 SECONDS (11.7-14.9)
[2025-04-28 13:48] LABS: Partial Thromboplast Time 31.1 Seconds (24.1-36.2)
[2025-04-28 14:00] LABS: Anion Gap 10 (5-15); BUN 25 mg/dL (4-19); BUN/Creat Ratio 19.4 RATIO (10-20); Calcium,Total 9.4 mg/dL (7.6-11.0); Carbon Dioxide 25.6 mmol/L (21.0-32.0); Chloride 104 mmol/L (98-108); Glucose 96 mg/dL (70-99); Potassium 4.6 mmol/L (3.3-5.1)
[2025-04-29 07:51] LABS: Magnesium 2.0 mg/dL (1.5-2.2)
[2025-05-11] VITALS (17 sets, daily range): BP systolic 90–156; BP diastolic 45–98; PULSE 60–82; RESP 12–16; TEMP 36.1–36.7; O2SAT 92–100; BMI 37.9
[2025-05-11] MEDS: Magnesium 1 GM over 15 mins IV (07:07)
[2025-05-11] MEDS: LR 1,000 ML - BOLUS PREOP 999 ML IV (07:07)
[2025-05-11] MEDS: Scopolamine 1mg/72hr Patch 1 PATCH TD (07:10)
[2025-05-11] MEDS: Midazolam 2 MG/2 ML Syringe 1 MG IV (07:50)
[2025-05-11] MEDS: Cefazolin 1 GM/5 ML Vial 2 GM IV (08:01)
[2025-05-11] MEDS: TRANEXAMIC ACID 1,000 MG/10 ML ML 2000 MG IV (08:20)
[2025-05-11] MEDS: fentaNYL 100 MCG/2 ML Ampul 50 MCG IV (10:37)
[2025-05-11] MEDS: LR 1,000 ML - 125 ML/HR POSTOP (NO BOLUS) IV (11:00)
[2025-05-11] MEDS: Cefazolin 2 GM in 0.9% Normal Saline (100mL Bag) 100 ML IV ×2 (14:44→22:01)
[2025-05-11] MEDS: Lactated Ringers 1,000 ML 125 ML IV (14:45)
[2025-05-11] MEDS: Senna/Docusate Sodium 1 Tablet 2 TABLET PO (20:32)
[2025-05-11] MEDS: Latanoprost 0.005% 1 Bottle 1 DRP OPHTHALMIC (20:43)
[2025-05-11] MEDS: MELATONIN 10 MG TABLET PO (22:05)
[2025-05-12 01:42] VITALS: BP 108/59; PULSE 72; RESP 16; TEMP 36.6; O2SAT 92
[2025-05-12] MEDS: 0.9% Normal Saline (250mL Bag) 250 ML 15 ML IV (05:28)
[2025-05-12] MEDS: Cefazolin 2 GM in 0.9% Normal Saline (100mL Bag) 100 ML IV (05:28)
[2025-05-12 05:47] VITALS: BP 118/53; PULSE 58; RESP 16; TEMP 36.6; O2SAT 97
[2025-05-12] MEDS: APIXABAN 2.5 MG TABLET (WCH) PO (06:27)
[2025-05-12 07:37] LABS: Hematocrit 34.0 % (37-47); Hemoglobin 11.7 g/dL (12.0-15.0); Immature Granulocytes Count 0.170 X10^3/uL (0.0-0.0); Mean Corp Hgb Conc 34.4 g/dL (32-36); Mean Corpuscular Volume 86.7 fL (81-99); Mean Platelet Vol. 9.9 fl (6.2-12.0); NRBC Flagged by Analyzer 0 % (0-5); Platelet Count 148 K/mm3 (150-450); RBC Distribution Width CV 12.8 % (11.6-14.6); RBC Distribution Width SD 40.4 fl (35.1-43.9); Red Blood Count 3.92 M/mm3 (4.2-5.4); White Blood Count 8.6 K/mm3 (4.4-11.0)
[2025-05-12 08:12] LABS: Anion Gap 11 (5-15); BUN 19 mg/dL (4-19); BUN/Creat Ratio 16.8 RATIO (10-20); Calcium,Total 9.1 mg/dL (7.6-11.0); Carbon Dioxide 23.9 mmol/L (21.0-32.0); Chloride 99 mmol/L (98-108); Estimated Creatinine Clearance 40.98 ml/min (50-250); Glucose 156 mg/dL (70-99); Potassium 5.2 mmol/L (3.3-5.1)
[2025-05-12 09:49] VITALS: BP 132/51; PULSE 55; RESP 16; TEMP 36.6; O2SAT 97
[2025-05-12] MEDS: Senna/Docusate Sodium 1 Tablet 2 TABLET PO (09:56)
[2025-05-12] MEDS: FLU VACCINE HIGH DOSE 25-26(65YR UP) 180 MCG/0.5 ML SYRINGE IM (12:30)
[2025-05-12 13:27] VITALS: BP 126/48; PULSE 58; RESP 17; TEMP 36.6; O2SAT 99
== END 2025-05-12 13:49 | disposition home or self-care (01) | DRG 470 ==
PROVIDERS: Admitting Provider Orthopaedic Surgery; PCP Physician Assistant; Referring Provider Orthopaedic Surgery; Visit Provider Orthopaedic Surgery
PROC: 8E0Y0CZ Robotic Assisted Procedure of Lower Extremity, Open Approach (ICD-10-PCS; CPT 27130; principal; 2025-05-11 07:45)
DX: M16.11 Unilateral primary osteoarthritis, right hip (principal); E66.9 Obesity, unspecified; M48.061 Spinal stenosis, lumbar region without neurogenic claudication; M70.61 Trochanteric bursitis, right hip; M47.816 Spondylosis without myelopathy or radiculopathy, lumbar region; E78.00 Pure hypercholesterolemia, unspecified; I25.2 Old myocardial infarction; Z68.38 Body mass index [BMI] 38.0-38.9, adult; M51.360 Other intervertebral disc degeneration, lumbar region with discogenic back pain only; Z79.82 Long term (current) use of aspirin; Z79.899 Other long term (current) drug therapy
CPT/HCPCS: 36415; 73502; 80048; 82962; 82985; 83036; 83735; 85025; 85610; 85730; 86850; 86900; 86901; 87077; 87081; 88304; 88311; 93005; 94668; 97110; 97116; 97162; 97166; 97535; C1776; J3475